=== PATIENT | male | born 1955 | race Caucasian/White ===

== ENCOUNTER 2018-09-23 15:42 | Inpatient (IN) ==
[2018-09-23 16:48] LABS: VBG Base Excess -6.8 mmol/L (-2-2); VBG Blood Gas Oxygen Content 11.6 Vol % (9.0-17.0); VBG PCO2 46 mmHG (44-48); VBG PH 7.25 (7.360-7.400); VBG PO2 53 mmHG (35-40)
--- NOTE | 2018-09-23 16:57 | XR ---
EXAM DATE: 09/23/2018 4:49 PM EST AGE/SEX: 63 years / Male INDICATIONS: Short of breath. CLINICAL DATA: This is the patient's initial encounter. Patient reports that signs and symptoms have been present for 1 day and indicates a pain score of 0/10. MEDICAL/SURGICAL HISTORY: None. None. COMPARISON: No prior exams available for comparison. FINDINGS: Patchy airspace consolidation in the mid to lower lobes, right greater than left. Cardiac silhouette is mildly enlarged with indistinct central pulmonary vascularity. Remainder of exam is unchanged. CONCLUSION: 1. Mild cardiomegaly with pulmonary edema pattern. Electronically signed by: Stephan High MD Board Certified Radiologist 09/23/2018 4:55 PM EST
[2018-09-23] MEDS ORDERED: Vancomycin Inj 1,000 MG in Sodium Chlor 0.9% Inj 250 ML IV.SIG ONE (17:01)
[2018-09-23 17:08] LABS: Baso % (Auto) 0.1 % (0.0-2.0); Hematocrit 31.6 % (39.0-51.0); Hemoglobin 10.7 gm/dL (13.0-17.0); Lymph # (Auto) 1.4 th/mm3 (1.0-4.8); Lymph % (Auto) 10.6 % (9.0-44.0); Mean Corpuscular HGB Conc 33.8 % (32.0-36.0); Mean Corpuscular Hemoglobin 33.1 pg (27.0-34.0); Mean Corpuscular Volume 97.9 fL (80.0-100.0); Mono % (Auto) 7.3 % (0.0-8.0); Neut # (Auto) 10.8 th/mm3 (1.8-7.7); Platelet Count 257 th/mm3 (150-450); Red Blood Count 3.23 mil/mm3 (4.50-5.90); Red Cell Distribution Width 14.1 % (11.6-17.2); White Blood Count 13.1 th/mm3 (4.0-11.0)
[2018-09-23 17:11] LABS: Activated Partial Thrombo Time 31.5 sec (23.4-31.7); INR 1.1 Ratio; Prothrombin Time 10.7 sec (9.8-11.6)
[2018-09-23 17:13] LABS: Alanine Aminotransferase 68 U/L (12-78); Albumin 3.7 g/dL (3.4-5.0); Anion Gap 14 meq/L (5-15); Aspartate Aminotransferase 200 U/L (15-37); Blood Urea Nitrogen 115 mg/dL (7-18); Calcium 7.9 mg/dL (8.5-10.1); Carbon Dioxide 20.6 meq/L (21.0-32.0); Chloride 98 meq/L (98-107); Glomerular Filtration Rate 12 mL/min (>89); Glucose,Random 121 mg/dL (74-106); Magnesium 2.7 mg/dL (1.5-2.5); Potassium 4.8 meq/L (3.5-5.1); Sodium 133 meq/L (136-145)
[2018-09-23 17:23] LABS: Alkaline Phosphatase 65 U/L (45-117); Thyroid Stimulating Hormone 0.318 uIU/mL (0.358-3.740); Total Protein 7.4 g/dL (6.4-8.2); Troponin I 0.58 ng/mL (0.02-0.05)
[2018-09-23 17:57] LABS: Bilirubin,Urine Negative (Negative); Clarity,Urine Clear (Clear); Color,Urine Yellow (Yellw/Straw); Glucose,Urine (UA) Negative (Negative); Hyaline Casts,Urine 10 /lpf (0-3); Leukocyte Esterase,Urine Negative (Negative); Mucus,Urine Few /lpf (Occasional); Nitrite,Urine Negative (Negative); Specific Gravity,Urine 1.012 (1.002-1.035)
--- NOTE | 2018-09-23 18:03 | CT ---
EXAM DATE: 09/23/2018 6:00 PM EST AGE/SEX: 63 years / Male INDICATIONS: Altered mental status. CLINICAL DATA: This is the patient's initial encounter. Patient reports that signs and symptoms have been present for 1 day and indicates a pain score of 0/10. MEDICAL/SURGICAL HISTORY: Hypertension. None. RADIATION DOSE: 48.41 CTDI (mGy) COMPARISON: No prior exams available for comparison. TECHNIQUE: CT of the head without contrast. Using automated exposure control and adjustment of the mA and/or kV according to patient size, radiation dose was kept as low as reasonably achievable to ob tain optimal diagnostic quality images. DICOM format image data is available electronically for revi ew and comparison. FINDINGS: Cerebrum: Mild diffuse cerebral atrophy. The ventricles are normal for degree of atrophy. No evidenc e of midline shift, mass lesion, hemorrhage or acute infarction. No extraaxial fluid collections are seen. Posterior Fossa: The cerebellum and brainstem are intact. The 4th ventricle is midline. The cerebe llopontine angle is unremarkable. Extracranial: The visualized portion of the orbits is intact. Skull: The calvaria is intact. No evidence of skull fracture. CONCLUSION: 1. No acute intracranial abnormality. . . Electronically signed by: Stephan High MD Board Certified Radiologist 09/23/2018 6:02 PM EST
[2018-09-23 18:30] LABS: Amphetamine Screen,Urine Neg (Neg); Barbiturate Screen,Urine Neg (Neg); Cannabinoid Screen,Urine Neg (Neg); Cocaine Screen,Urine Neg (Neg)
[2018-09-23 18:32] LABS: Opiate Screen,Urine Neg (Neg)
[2018-09-23] MEDS ORDERED: Acetaminophen 325 MG Tablet PO PRN (18:54)
[2018-09-23] MEDS ORDERED: Bisacodyl 10 MG Supp RECTAL PRN (18:54)
[2018-09-23] MEDS ORDERED: Dextrose 50% in Water 50 ML Vial IV.PUSH PRN (19:19)
--- NOTE | 2018-09-23 19:36 | ED ---
HPI General Chief complaint: Altered Mental Status Stated complaint: Fall Time Seen by Provider: 09/23/18 16:13 History of Present Illness HPI narrative: Patient is a 63-year-old male presents emergency department for evaluation of altered mental status gradually increasing over the past week. Patient is calmly by alexandre who states that the patient has been having increasing doses of methadone over the past week and she thinks that this is caused. She states that the patient has been taking no opiates instead been taking ibuprofen for his pain and the methadone. No history of kidney problems. He is an occasional drinker. No history of heavy Tylenol use. No fevers no cough no congestion. Was found to have a saturation in the 80s on triage and was brought back to a treatment room. His history is limited further as the patient is fairly altered. Related Data Home Medications Medication Instructions Recorded Confirmed lisinopril 09/23/18 09/23/18 Allergies Allergy/AdvReac Type Severity Reaction Status Date / Time penicillin G Allergy Mild UNKNOWN Verified 09/23/18 15:52 Review of Systems ROS: all other systems reviewed are negative [facility] Social History Social History Substance History: No History of Abuse Second Hand Smoke Exposure: No Smoking Status: Current every day smoker Tobacco Type: Cigarettes How Often Do You Have a Drink Containing Alcohol: Never Recent Travel in [facility] within the Last 8 Weeks: No Recent Out of Country Travel within the Last 8 Weeks: No Immunization History Tetanus Immunization: Unsure Exam Narrative Exam Narrative: GENERAL: Well-developed well-nourished, no obvious distress. SKIN: Focused skin assessment warm/dry. HEAD: Atraumatic. Normocephalic. EYES: Pupils equal and round. No scleral icterus. No injection or drainage. ENT: No nasal bleeding or discharge. Mucous membranes pink and moist. NECK: Trachea midline. No JVD. CARDIOVASCULAR: Regular rate and rhythm, mildly tachycardic.. No murmur appreciated. RESPIRATORY: No accessory muscle use. Breath sounds equal bilaterally. Bibasilar rales. GASTROINTESTINAL: Abdomen soft, non-tender, nondistended. Hepatic and splenic margins not palpable. MUSCULOSKELETAL: No obvious deformities. No clubbing. No cyanosis. No edema. I see no pedal edema. NEUROLOGICAL: Confused verbal response otherwise GCS of 14, follows commands in all 4 extremities. No obvious coronal nerve deficits per PSYCHIATRIC: Confused, limits evaluation further. Course Initial Documented Vital Signs Temperature 98.4 F 09/23/18 15:48 Pulse Rate 90 09/23/18 15:48 Respiratory Rate 20 09/23/18 15:48 Blood Pressure 134/77 09/23/18 15:48 Pulse Oximetry 88 L 09/23/18 15:48 Last Documented Vital Signs Temperature 98.4 F 09/23/18 15:48 Pulse Rate 80 09/23/18 17:35 Respiratory Rate 31 H 09/23/18 17:35 Blood Pressure 120/61 09/23/18 17:35 Pulse Oximetry 98 09/23/18 19:23 Critical Care Time Critical Care Time: Yes Total Critical Care Time: 35 Attestation: Aggregate critical care time was 35 minutes. Time to perform other separately billable procedures was not included in the critical care time. My time did not include minutes spent treating any other patients simultaneously or on activities that did not directly contribute to the patient's treatment. The services I provided to this patient were to treat and/or prevent clinically significant deterioration that could result in: , disability, organ failure I provided critical care services requiring my management, as noted below: Chart data review, documentation time, medication orders and management, vital sign assessments/reviewing monitor data, ordering and reviewing lab tests, ordering and interpreting/reviewing x-rays and diagnostic studies, care of the patient and discussion of the patient with the admitting physicians. Medical Decision Making MDM Narrative Medical decision making narrative: Patient room in the emergency department, certainly is confused, wide differential diagnosis. Vital signs within normal limits. Ammonia level negative, lactic acid normal. Patient does have mild acidosis appears to be combined metabolic and respiratory. He is significantly uremic with a BUN of 111 which I think would explain his altered mental status. Creatinine is now 5 and there is no previous for comparison. EKG nonischemic troponin is 0.52. Potassium is 4.8 per patient's chest x-ray shows significant pulmonary edema, Baca catheter was placed with scant urine in the bladder, Lasix 80 mg was given IV the patient began to diurese fairly clear urine. Appears to be that the patient is having uremic encephalopathy with acute kidney injury hypoxic respiratory failure and pulmonary edema. Given the altered mental status and the history of opiate use the patient was also covered for aspiration pneumonia. Blood cultures drawn and sent as well. Patient was discussed with Dr. Diaz who states is no indication for emergent dialysis at this time. Discussed with Dr. Sonja Tai who will admit to the ICU, we discussed the addition of BiPAP Medical Screen Exam Complete: Yes Emergency Medical Condition: Yes Lab Data Result diagrams: 09/23/18 16:40 09/23/18 16:40 Lab Results 09/23/18 09/23/18 09/23/18 Range/Units 16:40 16:40 16:40 WBC 13.1 H (4.0-11.0) th/mm3 RBC 3.23 L (4.50-5.90) mil/mm3 Hgb 10.7 L (13.0-17.0) gm/dL Hct 31.6 L (39.0-51.0) % MCV 97.9 (80.0-100.0) fL MCH 33.1 (27.0-34.0) pg MCHC 33.8 (32.0-36.0) % RDW 14.1 (11.6-17.2) % Plt Count 257 (150-450) th/mm3 MPV 8.0 (7.0-11.0) fL Neut % (Auto) 82.0 H (16.0-70.0) % Lymph % (Auto) 10.6 (9.0-44.0) % [place] % (Auto) 7.3 (0.0-8.0) % Eos % (Auto) 0.0 (0.0-4.0) % Baso % (Auto) 0.1 (0.0-2.0) % Neut # (Auto) 10.8 H (1.8-7.7) th/mm3 Lymph # (Auto) 1.4 (1.0-4.8) th/mm3 [place] # (Auto) 1.0 H (0.0-0.9) th/mm3 Eos # (Auto) 0.0 (0.0-0.4) th/mm3 Baso # (Auto) 0.0 (0.0-0.2) th/mm3 WBC Differential . Differential Comment Auto diff final PT 10.7 (9.8-11.6) sec INR 1.1 Ratio APTT 31.5 (23.4-31.7) sec Puncture Site Patient Temperature VBG pH (7.360-7.400) VBG pCO2 (44-48) mmHG VBG pO2 (35-40) mmHG VBG HCO3 (22-26) mmol/L VBG O2 Saturation (70-76) % VBG O2 Content (9.0-17.0) Vol % VBG Base Excess (-2-2) mmol/L VBG Carboxyhemoglobin (0-4) % VBG Methemoglobin (0-2) % Hemoglobin (12.0-16.0) G/DL O2 Delivery Device Inspired O2 % Critical Value Sodium 133 L (136-145) meq/L Potassium 4.8 (3.5-5.1) meq/L Chloride 98 (98-107) meq/L Carbon Dioxide 20.6 L (21.0-32.0) meq/L Anion Gap 14 (5-15) meq/L BUN 115 H (7-18) mg/dL Creatinine 4.92 H (0.60-1.30) mg/dL Estimated GFR 12 L (>89) mL/min POC Glucose (68-110) mg/dl Random Glucose 121 H (74-106) mg/dL Lactic Acid (0.4-2.0) mmol/L Calcium 7.9 L (8.5-10.1) mg/dL Magnesium 2.7 H (1.5-2.5) mg/dL Total Bilirubin 0.3 (0.2-1.0) mg/dL AST 200 H (15-37) U/L ALT 68 (12-78) U/L Alkaline Phosphatase 65 (45-117) U/L Ammonia (11-32) mcmol/L Troponin I 0.58 H (0.02-0.05) ng/mL B-Natriuretic Peptide (0-100) pg/mL Total Protein 7.4 (6.4-8.2) g/dL Albumin 3.7 (3.4-5.0) g/dL TSH 0.318 L (0.358-3.740) uIU/mL Urine Color (Yellw/Straw) Urine Clarity (Clear) Urine pH (5.0-8.5) Ur Specific [place] (1.002-1.035) Urine Protein (Neg-Trace) mg/dL Urine Glucose (UA) (Negative) mg/dL Urine Ketones (Negative) mg/dL Urine Occult Blood (Negative) Urine Nitrate (Negative) Urine Bilirubin (Negative) Urine Urobilinogen (Less than 2) mg/dL Ur Leukocyte Esterase (Negative) Urine RBC (0-3) /hpf Urine WBC (0-5) /hpf Hyaline Casts (0-3) /lpf Urine Mucus (Occasional) /lpf Micro UA Comment Ur Microscopic Review Urine Culture Comments Salicylates (2.8-20.0) mg/dL Urine Opiates Screen (Neg) Acetaminophen (10.0-30.0) mcg/mL Ur Barbiturates Screen (Neg) Ur Amphetamines Screen (Neg) U Benzodiazepines Scrn (Neg) Urine Cocaine Screen (Neg) U Cannabinoids Screen (Neg) Serum Alcohol (0-5) mg/dL 09/23/18 09/23/18 09/23/18 Range/Units 16:40 16:40 16:40 WBC (4.0-11.0) th/mm3 RBC (4.50-5.90) mil/mm3 Hgb (13.0-17.0) gm/dL Hct (39.0-51.0) % MCV (80.0-100.0) fL MCH (27.0-34.0) pg MCHC (32.0-36.0) % RDW (11.6-17.2) % Plt Count (150-450) th/mm3 MPV (7.0-11.0) fL Neut % (Auto) (16.0-70.0) % Lymph % (Auto) (9.0-44.0) % [place] % (Auto) (0.0-8.0) % Eos % (Auto) (0.0-4.0) % Baso % (Auto) (0.0-2.0) % Neut # (Auto) (1.8-7.7) th/mm3 Lymph # (Auto) (1.0-4.8) th/mm3 [place] # (Auto) (0.0-0.9) th/mm3 Eos # (Auto) (0.0-0.4) th/mm3 Baso # (Auto) (0.0-0.2) th/mm3 WBC Differential Differential Comment PT (9.8-11.6) sec INR Ratio APTT (23.4-31.7) sec Puncture Site Patient Temperature VBG pH (7.360-7.400) VBG pCO2 (44-48) mmHG VBG pO2 (35-40) mmHG VBG HCO3 (22-26) mmol/L VBG O2 Saturation (70-76) % VBG O2 Content (9.0-17.0) Vol % VBG Base Excess (-2-2) mmol/L VBG Carboxyhemoglobin (0-4) % VBG Methemoglobin (0-2) % Hemoglobin (12.0-16.0) G/DL O2 Delivery Device Inspired O2 % Critical Value Sodium (136-145) meq/L Potassium (3.5-5.1) meq/L Chloride (98-107) meq/L Carbon Dioxide (21.0-32.0) meq/L Anion Gap (5-15) meq/L BUN (7-18) mg/dL Creatinine (0.60-1.30) mg/dL Estimated GFR (>89) mL/min POC Glucose (68-110) mg/dl Random Glucose (74-106) mg/dL Lactic Acid (0.4-2.0) mmol/L Calcium (8.5-10.1) mg/dL Magnesium (1.5-2.5) mg/dL Total Bilirubin (0.2-1.0) mg/dL AST (15-37) U/L ALT (12-78) U/L Alkaline Phosphatase (45-117) U/L Ammonia 24 (11-32) mcmol/L Troponin I (0.02-0.05) ng/mL B-Natriuretic Peptide (0-100) pg/mL Total Protein (6.4-8.2) g/dL Albumin (3.4-5.0) g/dL TSH (0.358-3.740) uIU/mL Urine Color (Yellw/Straw) Urine Clarity (Clear) Urine pH (5.0-8.5) Ur Specific [place] (1.002-1.035) Urine Protein (Neg-Trace) mg/dL Urine Glucose (UA) (Negative) mg/dL Urine Ketones (Negative) mg/dL Urine Occult Blood (Negative) Urine Nitrate (Negative) Urine Bilirubin (Negative) Urine Urobilinogen (Less than 2) mg/dL Ur Leukocyte Esterase (Negative) Urine RBC (0-3) /hpf Urine WBC (0-5) /hpf Hyaline Casts (0-3) /lpf Urine Mucus (Occasional) /lpf Micro UA Comment Ur Microscopic Review Urine Culture Comments Salicylates 2.4 L (2.8-20.0) mg/dL Urine Opiates Screen (Neg) Acetaminophen Less than 2.0 L (10.0-30.0) mcg/mL Ur Barbiturates Screen (Neg) Ur Amphetamines Screen (Neg) U Benzodiazepines Scrn (Neg) Urine Cocaine Screen (Neg) U Cannabinoids Screen (Neg) Serum Alcohol Less than 3 (0-5) mg/dL 09/23/18 09/23/18 09/23/18 Range/Units 16:42 16:52 17:17 WBC (4.0-11.0) th/mm3 RBC (4.50-5.90) mil/mm3 Hgb (13.0-17.0) gm/dL Hct (39.0-51.0) % MCV (80.0-100.0) fL MCH (27.0-34.0) pg MCHC (32.0-36.0) % RDW (11.6-17.2) % Plt Count (150-450) th/mm3 MPV (7.0-11.0) fL Neut % (Auto) (16.0-70.0) % Lymph % (Auto) (9.0-44.0) % [place] % (Auto) (0.0-8.0) % Eos % (Auto) (0.0-4.0) % Baso % (Auto) (0.0-2.0) % Neut # (Auto) (1.8-7.7) th/mm3 Lymph # (Auto) (1.0-4.8) th/mm3 [place] # (Auto) (0.0-0.9) th/mm3 Eos # (Auto) (0.0-0.4) th/mm3 Baso # (Auto) (0.0-0.2) th/mm3 WBC Differential Differential Comment PT (9.8-11.6) sec INR Ratio APTT (23.4-31.7) sec Puncture Site Vein Patient Temperature 98.6 VBG pH 7.25 L* (7.360-7.400) VBG pCO2 46 (44-48) mmHG VBG pO2 53 H (35-40) mmHG VBG HCO3 19 L (22-26) mmol/L VBG O2 Saturation 78 H (70-76) % VBG O2 Content 11.6 (9.0-17.0) Vol % VBG Base Excess -6.8 L (-2-2) mmol/L VBG Carboxyhemoglobin 0.9 (0-4) % VBG Methemoglobin 0.5 (0-2) % Hemoglobin 10.6 L (12.0-16.0) G/DL O2 Delivery Device Venti mask Inspired O2 50 % Critical Value Yes Sodium (136-145) meq/L Potassium (3.5-5.1) meq/L Chloride (98-107) meq/L Carbon Dioxide (21.0-32.0) meq/L Anion Gap (5-15) meq/L BUN (7-18) mg/dL Creatinine (0.60-1.30) mg/dL Estimated GFR (>89) mL/min POC Glucose 125 H (68-110) mg/dl Random Glucose (74-106) mg/dL Lactic Acid 0.6 (0.4-2.0) mmol/L Calcium (8.5-10.1) mg/dL Magnesium (1.5-2.5) mg/dL Total Bilirubin (0.2-1.0) mg/dL AST (15-37) U/L ALT (12-78) U/L Alkaline Phosphatase (45-117) U/L Ammonia (11-32) mcmol/L Troponin I (0.02-0.05) ng/mL B-Natriuretic Peptide (0-100) pg/mL Total Protein (6.4-8.2) g/dL Albumin (3.4-5.0) g/dL TSH (0.358-3.740) uIU/mL Urine Color (Yellw/Straw) Urine Clarity (Clear) Urine pH (5.0-8.5) Ur Specific [place] (1.002-1.035) Urine Protein (Neg-Trace) mg/dL Urine Glucose (UA) (Negative) mg/dL Urine Ketones (Negative) mg/dL Urine Occult Blood (Negative) Urine Nitrate (Negative) Urine Bilirubin (Negative) Urine Urobilinogen (Less than 2) mg/dL Ur Leukocyte Esterase (Negative) Urine RBC (0-3) /hpf Urine WBC (0-5) /hpf Hyaline Casts (0-3) /lpf Urine Mucus (Occasional) /lpf Micro UA Comment Ur Microscopic Review Urine Culture Comments Salicylates (2.8-20.0) mg/dL Urine Opiates Screen (Neg) Acetaminophen (10.0-30.0) mcg/mL Ur Barbiturates Screen (Neg) Ur Amphetamines Screen (Neg) U Benzodiazepines Scrn (Neg) Urine Cocaine Screen (Neg) U Cannabinoids Screen (Neg) Serum Alcohol (0-5) mg/dL 09/23/18 09/23/18 09/23/18 Range/Units 17:17 17:40 17:40 WBC (4.0-11.0) th/mm3 RBC (4.50-5.90) mil/mm3 Hgb (13.0-17.0) gm/dL Hct (39.0-51.0) % MCV (80.0-100.0) fL MCH (27.0-34.0) pg MCHC (32.0-36.0) % RDW (11.6-17.2) % Plt Count (150-450) th/mm3 MPV (7.0-11.0) fL Neut % (Auto) (16.0-70.0) % Lymph % (Auto) (9.0-44.0) % [place] % (Auto) (0.0-8.0) % Eos % (Auto) (0.0-4.0) % Baso % (Auto) (0.0-2.0) % Neut # (Auto) (1.8-7.7) th/mm3 Lymph # (Auto) (1.0-4.8) th/mm3 [place] # (Auto) (0.0-0.9) th/mm3 Eos # (Auto) (0.0-0.4) th/mm3 Baso # (Auto) (0.0-0.2) th/mm3 WBC Differential Differential Comment PT (9.8-11.6) sec INR Ratio APTT (23.4-31.7) sec Puncture Site Patient Temperature VBG pH (7.360-7.400) VBG pCO2 (44-48) mmHG VBG pO2 (35-40) mmHG VBG HCO3 (22-26) mmol/L VBG O2 Saturation (70-76) % VBG O2 Content (9.0-17.0) Vol % VBG Base Excess (-2-2) mmol/L VBG Carboxyhemoglobin (0-4) % VBG Methemoglobin (0-2) % Hemoglobin (12.0-16.0) G/DL O2 Delivery Device Inspired O2 % Critical Value Sodium (136-145) meq/L Potassium (3.5-5.1) meq/L Chloride (98-107) meq/L Carbon Dioxide (21.0-32.0) meq/L Anion Gap (5-15) meq/L BUN (7-18) mg/dL Creatinine (0.60-1.30) mg/dL Estimated GFR (>89) mL/min POC Glucose (68-110) mg/dl Random Glucose (74-106) mg/dL Lactic Acid (0.4-2.0) mmol/L Calcium (8.5-10.1) mg/dL Magnesium (1.5-2.5) mg/dL Total Bilirubin (0.2-1.0) mg/dL AST (15-37) U/L ALT (12-78) U/L Alkaline Phosphatase (45-117) U/L Ammonia (11-32) mcmol/L Troponin I (0.02-0.05) ng/mL B-Natriuretic Peptide 239 H (0-100) pg/mL Total Protein (6.4-8.2) g/dL Albumin (3.4-5.0) g/dL TSH (0.358-3.740) uIU/mL Urine Color Yellow (Yellw/Straw) Urine Clarity Clear (Clear) Urine pH 5.0 (5.0-8.5) Ur Specific [place] 1.012 (1.002-1.035) Urine Protein Negative (Neg-Trace) mg/dL Urine Glucose (UA) Negative (Negative) mg/dL Urine Ketones Negative (Negative) mg/dL Urine Occult Blood Moderate H (Negative) Urine Nitrate Negative (Negative) Urine Bilirubin Negative (Negative) Urine Urobilinogen Less than 2 (Less than 2) mg/dL Ur Leukocyte Esterase Negative (Negative) Urine RBC Less than 1 (0-3) /hpf Urine WBC 7 H (0-5) /hpf Hyaline Casts 10 (0-3) /lpf Urine Mucus Few H (Occasional) /lpf Micro UA Comment Cath-culture not ind Ur Microscopic Review Not Reportable Urine Culture Comments Cath-cult not ind Salicylates (2.8-20.0) mg/dL Urine Opiates Screen Neg (Neg) Acetaminophen (10.0-30.0) mcg/mL Ur Barbiturates Screen Neg (Neg) Ur Amphetamines Screen Neg (Neg) U Benzodiazepines Scrn Neg (Neg) Urine Cocaine Screen Neg (Neg) U Cannabinoids Screen Neg (Neg) Serum Alcohol (0-5) mg/dL Imaging Data Radiologist's impression: Chest X-Ray 09/23/18 16:19 CONCLUSION: 1. Mild cardiomegaly with pulmonary edema pattern. Head CT 09/23/18 16:19 CONCLUSION: 1. No acute intracranial abnormality. . . Discharge Plan Discharge Disposition Patient Disposition: ED Admit(ED Internal Use Only) Discharge Condition Condition: Fair Discharge Order Discharge Orders: ED Use Only Admit Order (Routine); Ordered 09/23/18 Ordered By: Petey Hope Discharge Details Diagnosis: Altered mental status, Delirium due to general medical condition, Uremic encephalopathy, Acute kidney failure, Pulmonary edema, Acute respiratory failure with hypoxia Physicians Team ED Provider: Petey Hope Primary Care Provider: Primary Care Physici,No Attending Provider: Florence Villarreal Other Providers: [employer] Status ED Status: Admitted Patient
--- NOTE | 2018-09-23 19:39 | P.HPCC ---
History of Present Illness Service: Critical care Primary Care Physician: No Primary Care Physician Chief Complaint: Altered mental status History of Present Illness: 63yM presenting with altered mental status. As per the patient's spouse, the patient has been switching from hydrocodone to methadone over the past several weeks; she says "they just keep going up on the dose every time he goes for an appointment" but is unsure of what dose the patient is currently taking. She says that he's been increasingly confused in the mornings after he takes his medications but typically becomes more alert in the afternoon. He's been taking ibuprofen "by the handful, like candy" for the past 1-2 weeks to help with his chronic back pain, and his spouse brought him to the ED today when she noticed that he was increasingly more confused than usual. The patient was seen in the ED and found to have acute kidney injury, pulmonary edema, and presumed uremic encephalopathy. The patient is a very poor historian and is unable to provide further details of HPI or ROS. He and his spouse do not know what home meds he is on or the doses. - Diagnosis (1) Acute metabolic encephalopathy (2) Acute kidney injury (3) Pulmonary edema (4) Chronically on opiate therapy (5) Metabolic acidosis (6) Elevated troponin Inpatient Certification: I certify that the inpatient services were ordered in accordance with Medicare regulations governing the order. This includes certification that hospital inpatient services are reasonable and necessary and in the case of services not specified as inpatient-only under 42 CFR 419.22(n), that they are appropriately provided as inpatient services in accordance to with the 2-midnight benchmark under 43 CFR 412.3(e) Estimated Total Length of Stay (Days): 5 Plans for Post Hospital Care: Not yet determined Review of Systems unobtainable due to mental status PMFSH - History History Provided By: Patient, Significant Other - Medical History Medical History: Medical History (Last Reviewed 09/23/18 @ 19:13 by Florence Villarreal DO) HTN (hypertension) Hyperlipidemia - Social History I have reviewed the patient's Social History: Yes - Tobacco History Second Hand Smoke Exposure: No Tobacco Use In Past 30 Days: Yes Smoking Status: Current every day smoker Tobacco Type: Cigarettes - Alcohol History How Often Do You Have a Drink Containing Alcohol: Never - Substance Use History Substance History: No History of Abuse - Travel History Recent Travel in the [facility] Within the Last 8 Weeks: No Recent Travel Out of the Country Within the Last 8 Weeks: No - Immunization History Tetanus Immunization: Unsure Medications and Allergies Active Medications: Active Medications Acetaminophen (Tylenol) 650 mg PO Q6H PRN PRN Reason: PAIN 1-10 AND/OR FEVER >101F Al Hydroxide/Mg Hydroxide (Milk Of Magnesia Liq) 30 ml PO Q12H PRN PRN Reason: Mild Constipation Albuterol (Duoneb Neb (Prn)) 1 ampul NEB Q2HR NEB PRN PRN Reason: WHEEZING Albuterol (Duoneb Neb (Prn)) 1 ampul NEB Q4HR NEB ADITHYA Bisacodyl (Dulcolax Supp) 10 mg RECTAL DAILY PRN PRN Reason: SEVERE CONSITIPATION Chlorhexidine Gluconate (Chlorhexidine 2% Cloth) 3 pack TOPICAL DAILY@0400 ADITHYA Stop: 09/29/18 03:59 Chlorhexidine Gluconate (Chlorhexidine 2% Cloth) 3 pack TOPICAL DAILY@0400 PRN PRN Reason: Extra cloth needed Stop: 09/29/18 03:59 Famotidine (Pepcid) 20 mg PO BID ADITHYA Famotidine (Pepcid Pf Inj) 20 mg IV.PUSH Q12HR ADITHYA Furosemide (Lasix Inj) 40 mg IV.PUSH ONCE ONE Stop: 09/24/18 00:01 Heparin Sodium (Porcine) (Heparin Inj) 5,000 units SQ Q8H [facility] Sodium Bicarbonate 50 meq/ (Dextrose) 1,000 mls @ 100 mls/hr IV.CONT .Q10H ADITHYA Lactulose (Lactulose Liq) 30 ml PO DAILY PRN PRN Reason: SEVERE CONSITIPATION Ondansetron HCl (Zofran Inj) 4 mg IV.PUSH Q6H PRN PRN Reason: NAUSEA OR VOMITING Senna/Docusate Sodium (Ofelia-Colace) 1 tab PO BID [facility] Sennosides (Senokot) 17.2 mg PO Q12H PRN PRN Reason: Moderate Constipation Sodium Chloride (Ns Flush) 2 ml IV.FLUSH PRN PRN PRN Reason: FLUSH AFTER USING IV ACCESS Sodium Chloride (Ns Flush) 2 ml IV.FLUSH BID ADITHYA Sodium Chloride (Ns Flush) 2 ml IV.FLUSH PRN PRN PRN Reason: FLUSH AFTER USING IV ACCESS Allergies Allergy/AdvReac Type Severity Reaction Status Date / Time penicillin G Allergy Mild UNKNOWN Verified 09/23/18 15:52 Home Medications Medication Instructions Recorded Confirmed Type lisinopril 09/23/18 09/23/18 History Results - Labs CBC & Chem 7: 09/23/18 16:40 09/23/18 16:40 Labs: Short CBC 09/23/18 Range/Units 16:40 WBC 13.1 H (4.0-11.0) th/mm3 Hgb 10.7 L (13.0-17.0) gm/dL Hct 31.6 L (39.0-51.0) % Plt Count 257 (150-450) th/mm3 BMP 09/23/18 16:40 Sodium 133 L Potassium 4.8 Chloride 98 Carbon Dioxide 20.6 L BUN 115 H Creatinine 4.92 H Calcium 7.9 L Cardiac Enzymes 09/23/18 Range/Units 16:40 Troponin I 0.58 H (0.02-0.05) ng/mL Liver Function 09/23/18 Range/Units 16:40 Total Bilirubin 0.3 (0.2-1.0) mg/dL AST 200 H (15-37) U/L ALT 68 (12-78) U/L Alkaline Phosphatase 65 (45-117) U/L Albumin 3.7 (3.4-5.0) g/dL Urine 09/23/18 Range/Units 17:40 Urine Color Yellow (Yellw/Straw) Urine Clarity Clear (Clear) Urine pH 5.0 (5.0-8.5) Ur Specific [place] 1.012 (1.002-1.035) Urine Protein Negative (Neg-Trace) mg/dL Urine Glucose (UA) Negative (Negative) mg/dL - Imaging Impressions Chest X-Ray 09/23/18 16:19 CONCLUSION: 1. Mild cardiomegaly with pulmonary edema pattern. Head CT 09/23/18 16:19 CONCLUSION: 1. No acute intracranial abnormality. . . - ECG Attestation: I personally reviewed and interpreted this ECG as follows: Interpretation: Rate: 88 BPM Rhythm: Sinus [place]: Left Intervals: No blocks, normal intervals, QTc 410 ms Q waves: III, aVF T waves: Upright, no inversions ST segments: No elevations or depressions Impression: Non-specific EKG, no significant changes as compared to EKG from 04/01. Exam Vital signs: Vital Signs 09/23/18 15:48 09/23/18 15:52 09/23/18 16:13 Temperature 98.4 F Pulse Rate 90 90 Respiratory Rate 20 24 Blood Pressure 134/77 145/68 H Pulse Oximetry 88 L 91 L 90 L 09/23/18 17:35 Temperature Pulse Rate 80 Respiratory Rate 31 H Blood Pressure 120/61 Pulse Oximetry 82 L Intake & Output 09/23/18 09/23/18 09/24/18 06:59 18:59 06:59 Intake Total 450 / 450 Balance 450 / 450 Weight 106.594 kg Intake: IV 450 / 450 Vancomycin Inj 1,000 MG In NS 250 / 250 Inj 250 ML @ 250 mls/hr IV.SIG ONCE ONE Rx#:[id number] Rocephin Inj 1,000 MG In NS Inj 100 / 100 100 ML @ 200 mls/hr IV.SIG ONCE ONE Rx#:[id number] Flagyl 500 MG Inj 100 ML @ 100 100 / 100 mls/hr IV.SIG ONCE ONE Rx#: [id number] Narrative: GEN: Well-nourished, appears confused, maintaining airway reflexes HEENT: NCAT, mucosa dry NECK: Trachea midline, no JVD CARDIO: Regular rate and rhythm, no murmurs PULM: Diminished breath sounds at bases with faint mid-field crackles bilaterally, O2 sats low to mid 90s on simple mask, mildly tachypneic but speaks in complete sentences ABD/GI: Soft, non-distended, non-tender in all quadrants MSK: Trace peripheral edema SKIN: No rashes or lesions NEURO: Alert and oriented x 3, appears confused, very poor historian, requires frequent redirection, moves all extremities PSYCH: No agitation Caprini VTE Risk Assessment Caprini VTE Risk Assessment: Moderate/High Risk (score >= 2) Caprini Risk Assessment Model: Point Value = 1 Point Value = 2 Point Value = 3 Point Value = 5 Age 41-60 Minor surgery BMI > 25 kg/m2 Swollen legs Varicose veins or History of unexplained or recurrent spontaneous Oral contraceptives or hormone replacement Sepsis (< 1 month) Serious lung disease, including pneumonia (< 1 month) Abnormal pulmonary function Acute myocardial infarction Congestive heart failure (< 1 month) History of inflammatory bowel disease Medical patient at bed rest Age 61-74 Arthroscopic surgery Major open surgery (> 45 min) Laparoscopic surgery (> 45 min) Malignancy Confined to bed (> 72 hours) Immobilizing plaster cast Central venous access Age >= 75 History of VTE Family history of VTE Factor V Leiden Prothrombin [id number] Lupus anticoagulant Anticardiolipin antibodies Elevated serum homocysteine Heparin-induced thrombocytopenia Other congenital or acquired thrombophilia Stroke (< 1 month) Elective arthroplasty Hip, pelvis, or leg fracture Acute spinal cord injury (< 1 month) Prophylaxis Regimen: Total Risk Factor Score Risk Level Prophylaxis Regimen 0-1 Low Early ambulation 2 Moderate Order ONE of the following: *Sequential Compression Device (SCD) *Heparin 5000 units SQ BID 3-4 Higher Order ONE of the following medications: *Heparin 5000 units SQ TID *Enoxaparin/Lovenox 40 mg SQ daily (WT < 150 kg, CrCl > 30 mL/min) *Enoxaparin/Lovenox 30 mg SQ daily (WT < 150 kg, CrCl > 10-29 mL/min) *Enoxaparin/Lovenox 30 mg SQ BID (WT < 150 kg, CrCl > 30 mL/min) AND/OR *Sequential Compression Device (SCD) 5 or more Highest Order ONE of the following medications: *Heparin 5000 units SQ TID (Preferred with Epidurals) *Enoxaparin/Lovenox 40 mg SQ daily (WT < 150 kg, CrCl > 30 mL/min) *Enoxaparin/Lovenox 30 mg SQ daily (WT < 150 kg, CrCl > 10-29 mL/min) *Enoxaparin/Lovenox 30 mg SQ BID (WT < 150 kg, CrCl > 30 mL/min) AND *Sequential Compression Device (SCD) Assessment and Plan - Problem List (1) Acute metabolic encephalopathy Code(s): G93.41 - Metabolic encephalopathy Status: Acute (2) Acute kidney injury Code(s): N17.9 - Acute kidney failure, unspecified Status: Acute (3) Pulmonary edema Code(s): J81.1 - Chronic pulmonary edema Status: Acute (4) Chronically on opiate therapy Code(s): Z79.891 - long term care pharmacist (current) use of opiate analgesic Status: Acute (5) Metabolic acidosis Code(s): E87.2 - Acidosis Status: Acute (6) Elevated troponin Code(s): R74.8 - Abnormal levels of other serum enzymes Status: Acute - Assessment and Plan Plan: 63yM presenting with acute metabolic encephalopathy, acute kidney injury, pulmonary edema, elevated troponin, and metabolic acidosis NEURO: Acute metabolic encephalopathy, likely due to uremia vs medication effect Chronic opiate dependence -Patient is unsure of what dose of methadone he's on at home, will hold for now as he is encephalopathic but will need to clarify dose in AM to prevent acute withdrawal -Frequent neuro checks -CTH showed no acute pathology -No reported history of alcohol or illicit drug abuse/ dependence CARDIO: History of hypertension History of dyslipidemia Elevated troponin -Patient does not know what meds he takes at home for either of these conditions , will need home meds clarified in AM -Cardiac monitoring -Trend trops -Check 2D echo in the setting of new pulmonary edema and elevated trop, more likely due to renal failure rather than ACS -Patient reports no chest pain at present, EKG shows no concerning ST or T wave changes -Daily ASA PULM: Acute pulmonary edema Possible aspiration pneumonitis Acute respiratory failure requiring non-invasive ventilation via BiPAP -Will place on bipap overnight to aid with pulmonary edema -Repeat CXR and ABG in AM -Diuresis as outlined below -Patient received a dose of ceftriaxone, metronidazole, and vancomycin in ED over concern for possible aspiration; will observe off antibiotics for now as patient is afebrile and has only mild leukocytosis -ABG on FiO2 of 0.5 is 7.24/ 45.9/ 53.4/ 19.2/ -6.8, indicates metabolic acidosis rather than respiratory cause (see below) F/E/N, RENAL: Acute kidney injury Acute metabolic acidosis -NPO while on bipap, ok to have ice chips -Bicarb gtt @ 100 cc/hr as patient likely has a component of RTA due to subacute / chronic NSAID overdose -Creat currently 4.92, check BMP in AM -Urine output >900 cc after receiving 80 mg lasix in ED, strict Is/Os, requires continuation of Baca catheter -Repeat dose of lasix at midnight (6 hrs after initial dose) -Check urine eosinophils -Check CPK to r/o rhabdomyolysis -Urine pH 5.0 -Recheck ABG in AM -Consider nephrology consult if kidney function worsens ENDO: Questionable history of diabetes mellitus -Patient is unsure of whether he has been diagnosed with this in the past, does not currently take any medications for DM -Sliding scale insulin as needed PROPHY: -SCDs, SQH -PPI OVERALL: This patient is critically ill and requires ICU level of care. He is at risk for decompensation. Counseling/ Coordination of Care: This patient is critically ill with impairment of one or more vital organ systems with a high probability of imminent or life-threatening deterioration. High-complexity medical decision making was required to support vital organ function and/ or prevent deterioration in the patient's condition. Total critical care time spent is 62 minutes giving full attention to this patient. This includes examining the patient, gathering history from someone other than the patient (i.e. chart review), discussing the patient's care with other providers, managing the patient's blood pressure and ventilator settings, ordering and interpreting radiologic studies, ordering and interpreting laboratory values, managing the patient's sedation requirements, re-evaluation at frequent intervals, and documentation. Amount of time is separate from teaching, counseling the patient and/or family, and exclusive of procedures. Code Status: Full
[2018-09-23] MEDS: Sodium Bicarbonate 8.4% Inj 50 MEQ in Dextrose 5% in Water Inj 950 ML IV.CONT SCH ×2 (19:57)
[2018-09-23 20:27] LABS: ABG PCO2 42 mmHg (38-42); ABG PO2 92 mmHg (61-120)
[2018-09-23 20:45] LABS: Creatine Kinase MB 146.8 ng/mL (0.5-3.6)
[2018-09-23] MEDS: Famotidine PF Inj 20 MG/2 ML Vial IV.PUSH SCH (21:54)
[2018-09-23] MEDS: Heparin - SQ 10,000 UNITS/ML Vial SQ SCH (21:55)
[2018-09-23] MEDS: Famotidine 20 MG Tablet PO SCH (21:56)
[2018-09-23] MEDS: Senna/Docusate Sodium 8.6/50 MG Tablet PO SCH (21:56)
[2018-09-24] MEDS: Insulin NovoLIN Regular Correctional Sugar Inj SQ SCH ×4 (00:18→21:56)
[2018-09-24] MEDS ORDERED: Chlorhexidine Gluconate 2% 1 Pack (2 Cloths) TOPICAL PRN (04:00)
[2018-09-24 04:38] LABS: Baso % (Auto) 0.1 % (0.0-2.0); Eos % (Auto) 0.2 % (0.0-4.0); Hematocrit 33.3 % (39.0-51.0); Hemoglobin 11.2 gm/dL (13.0-17.0); Lymph # (Auto) 0.8 th/mm3 (1.0-4.8); Lymph % (Auto) 8.6 % (9.0-44.0); Mean Corpuscular HGB Conc 33.7 % (32.0-36.0); Mean Corpuscular Hemoglobin 33.4 pg (27.0-34.0); Mean Corpuscular Volume 98.9 fL (80.0-100.0); Mean Platelet Volume 8.3 fL (7.0-11.0); Mono # (Auto) 0.7 th/mm3 (0.0-0.9); Mono % (Auto) 7.1 % (0.0-8.0); Platelet Count 253 th/mm3 (150-450); Red Blood Count 3.37 mil/mm3 (4.50-5.90); White Blood Count 9.5 th/mm3 (4.0-11.0)
[2018-09-24 04:46] LABS: ABG Base Excess -3.2 mmol/L (-2-2); ABG PCO2 46 mmHg (38-42); ABG PO2 100 mmHG (61-120)
[2018-09-24] MEDS: Heparin - SQ 10,000 UNITS/ML Vial SQ SCH ×3 (04:57→21:52)
[2018-09-24] MEDS: Chlorhexidine Gluconate 2% 1 Pack (2 Cloths) TOPICAL SCH (04:57)
[2018-09-24 05:16] LABS: Alanine Aminotransferase 70 U/L (12-78); Albumin 3.4 g/dL (3.4-5.0); Alkaline Phosphatase 54 U/L (45-117); Anion Gap 15 meq/L (5-15); Aspartate Aminotransferase 159 U/L (15-37); Blood Urea Nitrogen 109 mg/dL (7-18); Calcium 8.2 mg/dL (8.5-10.1); Carbon Dioxide 23.2 meq/L (21.0-32.0); Chloride 98 meq/L (98-107); Creatine Kinase 4758 U/L (39-308); Glomerular Filtration Rate 18 mL/min (>89); Glucose,Random 123 mg/dL (74-106); Magnesium 2.6 mg/dL (1.5-2.5); Phosphorus 6.2 mg/dL (2.5-4.9); Potassium 3.6 meq/L (3.5-5.1); Sodium 136 meq/L (136-145); Total Protein 7.2 g/dL (6.4-8.2)
[2018-09-24 05:18] LABS: Troponin I 0.66 ng/mL (0.02-0.05)
[2018-09-24 05:32] LABS: CKMB Percent 1.5 % (0.0-4.0); Creatine Kinase MB 72.9 ng/mL (0.5-3.6)
--- NOTE | 2018-09-24 05:40 | XR ---
EXAM DATE: 09/24/2018 5:31 AM EST AGE/SEX: 63 years / Male INDICATIONS: Shortness of breath. CLINICAL DATA: This is the patient's subsequent encounter. Patient reports that signs and symptoms h ave been present for 2 days and indicates a pain score of 0/10. MEDICAL/SURGICAL HISTORY: Hypertension. None. COMPARISON: [facility] – [place], CHEST 1V SINGLE AP, 09/23/2018. . FINDINGS: A single AP view of the chest demonstrates bilateral patchy airspace disease. Cardiomegaly. The card iomediastinal contours are unremarkable. Osseous structures are intact. CONCLUSION: Cardiomegaly and bilateral patchy airspace disease Electronically signed by: Rodolfo Qiu MD Board Certified Radiologist 09/24/2018 5:38 AM EST
[2018-09-24] MEDS: Sodium Bicarbonate 8.4% Inj 50 MEQ in Dextrose 5% in Water Inj 950 ML IV.CONT SCH ×2 (06:12)
[2018-09-24] MEDS: Famotidine PF Inj 20 MG/2 ML Vial IV.PUSH SCH ×2 (09:54→21:55)
[2018-09-24] MEDS: Famotidine 20 MG Tablet PO SCH ×2 (09:54→21:53)
[2018-09-24] MEDS: Senna/Docusate Sodium 8.6/50 MG Tablet PO SCH ×2 (09:56→21:55)
--- NOTE | 2018-09-24 10:39 | P.PNCC ---
Subjective Subjective Remarks/Hospital Course: 63yM presenting with altered mental status. As per the patient's spouse, the patient has been switching from hydrocodone to methadone over the past several weeks; she says "they just keep going up on the dose every time he goes for an appointment" but is unsure of what dose the patient is currently taking. She says that he's been increasingly confused in the mornings after he takes his medications but typically becomes more alert in the afternoon. He's been taking ibuprofen "by the handful, like candy" for the past 1-2 weeks to help with his chronic back pain, and his spouse brought him to the ED today when she noticed that he was increasingly more confused than usual. The patient was seen in the ED and found to have acute kidney injury, pulmonary edema, and presumed uremic encephalopathy. The patient is a very poor historian and is unable to provide further details of HPI or ROS. He and his spouse do not know what home meds he is on or the doses. 09/24/18: On my evaluation in a.m. patient remained on BiPAP. Oxygen saturation is maintaining well. Mental status seems to be improving. Bilateral crackles present on exam. Urine output 2.2 L in 24 hours. Creatinine is improved from 4.9 to 3.4. BUN marginally improved Objective Vital Signs / I&O: Vital Signs 09/23/18 15:48 09/23/18 15:52 09/23/18 16:13 Temperature 98.4 F Pulse Rate 90 90 Respiratory Rate 20 24 Blood Pressure 134/77 145/68 H Pulse Oximetry 88 L 91 L 90 L 09/23/18 17:35 09/23/18 19:23 09/23/18 19:30 Temperature Pulse Rate 80 80 Respiratory Rate 31 H 15 Blood Pressure 120/61 116/91 H Pulse Oximetry 82 L 98 99 09/23/18 20:00 09/23/18 20:03 09/23/18 20:07 Temperature Pulse Rate 78 Respiratory Rate 18 Blood Pressure Pulse Oximetry 94 L 99 09/23/18 21:00 09/23/18 21:02 09/23/18 22:00 Temperature 98.9 F 98.9 F Pulse Rate 82 80 Respiratory Rate 18 18 Blood Pressure 129/60 120/59 L Pulse Oximetry 94 L 93 L 94 L 09/23/18 23:00 09/23/18 23:29 09/24/18 00:00 Temperature 98.9 F 98.7 F Pulse Rate 79 75 73 Respiratory Rate 16 16 18 Blood Pressure 116/59 L 104/56 L Pulse Oximetry 95 93 L 09/24/18 00:28 09/24/18 01:00 09/24/18 02:00 Temperature 98.7 F 98.7 F Pulse Rate 69 75 Respiratory Rate 16 17 Blood Pressure 110/56 L 117/57 L Pulse Oximetry 94 L 93 L 93 L 09/24/18 03:00 09/24/18 03:54 09/24/18 04:00 Temperature 98.7 F 98.5 F Pulse Rate 87 78 77 Respiratory Rate 17 14 19 Blood Pressure 117/57 L 135/77 Pulse Oximetry 93 L 95 95 09/24/18 05:00 09/24/18 06:00 09/24/18 07:24 Temperature 98.5 F 98.5 F Pulse Rate 77 82 78 Respiratory Rate 18 22 22 Blood Pressure 129/60 133/65 Pulse Oximetry 95 95 92 L Intake & Output 09/23/18 09/24/18 09/24/18 18:59 06:59 18:59 Intake Total 450 / 450 1000 / 1000 Output Total 2200 / 2200 Balance 450 / 450 -1200 / -1200 Weight 106.594 kg 101.3 kg Intake: IV 450 / 450 1000 / 1000 Sodium Bicarbonate 8.4% Inj 50 1000 / 1000 MEQ In D5W Inj 950 ML @ 100 mls /hr IV.CONT .Q10H ADITHYA Rx#: [id number] Vancomycin Inj 1,000 MG In NS 250 / 250 Inj 250 ML @ 250 mls/hr IV.SIG ONCE ONE Rx#:[id number] Rocephin Inj 1,000 MG In NS Inj 100 / 100 100 ML @ 200 mls/hr IV.SIG ONCE ONE Rx#:[id number] Flagyl 500 MG Inj 100 ML @ 100 100 / 100 mls/hr IV.SIG ONCE ONE Rx#: [id number] Output: Urine Amount (Catheter) 2199 / 0 Indwelling Urethral Catheter 2199 / 2199 Other: Weight On Admission 102.1 kg Result Diagrams: 09/24/18 04:06 09/24/18 04:06 Objective Remarks: GEN: Well-nourished, breathing comfortably on BiPAP. HEENT: NCAT, mucosa dry NECK: Trachea midline, no JVD CARDIO: Regular rate and rhythm, no murmurs PULM: Diminished breath sounds at bases with faint mid-field crackles bilaterally, tolerating BiPAP ABD/GI: Soft, non-distended, non-tender in all quadrants MSK: Trace peripheral edema SKIN: No rashes or lesions NEURO: Alert and oriented, poor historian, requires frequent redirection, moves all extremities Assessment and Plan - Assessment and Plan Plan: 63yM presenting with acute metabolic encephalopathy, acute kidney injury, pulmonary edema, elevated troponin, and metabolic acidosis NEURO: Acute metabolic encephalopathy, likely due to uremia vs medication effect Chronic opiate dependence -Patient is unsure of what dose of methadone he's on at home, will hold for now as he is encephalopathic but will need to clarify dose in AM to prevent acute withdrawal -Frequent neuro checks -CTH showed no acute pathology -No reported history of alcohol or illicit drug abuse/ dependence CARDIO: History of hypertension History of dyslipidemia Elevated troponin -Patient does not know what meds he takes at home for either of these conditions , will need home meds clarified -Cardiac monitoring -Trend trops -2D echo in the setting of new pulmonary edema and elevated trop, more likely due to renal failure rather than ACS -Cardiology consult -Patient reports no chest pain at present, EKG shows no concerning ST or T wave changes -Daily ASA -Continue subcu heparin no indication for systemic anticoagulation PULM: Acute pulmonary edema Possible aspiration pneumonitis Acute respiratory failure requiring non-invasive ventilation via BiPAP -Bipap overnight to aid with pulmonary edema -Repeat CXR and ABG as needed -Diuresis as outlined below -Patient received a dose of ceftriaxone, metronidazole, and vancomycin in ED over concern for possible aspiration; will observe off antibiotics for now as patient is afebrile and has only mild leukocytosis -ABG on FiO2 of 0.5 is 7.24/ 45.9/ 53.4/ 19.2/ -6.8, indicates metabolic acidosis rather than respiratory cause (see below) F/E/N, RENAL: Acute kidney injury Acute metabolic acidosis -NPO while on bipap, ok to have ice chips -Bicarb gtt @ 100 cc/hr as patient likely has a component of RTA due to subacute / chronic NSAID overdose -Creat 4.92, now improved to 3.4 -Urine output >2.2L with IV Lasix, strict Is/Os, requires continuation of Baca catheter -F/u urine eosinophils -CPK 5000 -Urine pH 5.0 -Consider nephrology consult if kidney function worsens ENDO: Questionable history of diabetes mellitus -Patient is unsure of whether he has been diagnosed with this in the past, does not currently take any medications for DM -Sliding scale insulin as needed PROPHY: -SCDs, SQH -PPI OVERALL: This patient is critically ill and requires ICU level of care. He is at risk for decompensation. Counseling/ Coordination of Care: This patient is critically ill with impairment of one or more vital organ systems with a high probability of imminent or life-threatening deterioration. High-complexity medical decision making was required to support vital organ function and/ or prevent deterioration in the patient's condition. Total critical care time spent is 35 minutes giving full attention to this patient. This includes examining the patient, gathering history from someone other than the patient (i.e. chart review), discussing the patient's care with other providers, managing the patient's blood pressure and ventilator settings, ordering and interpreting radiologic studies, ordering and interpreting laboratory values, managing the patient's sedation requirements, re-evaluation at frequent intervals, and documentation. Amount of time is separate from teaching, counseling the patient and/or family, and exclusive of procedures.
--- NOTE | 2018-09-24 12:27 | ECG ---
Date Performed: 09/23/2018 Time Performed: 16:09:06 PTAGE: 63 years EKG: Sinus rhythm MODERATE VOLTAGE CRITERIA FOR LVH, CONSIDER NORMAL VARIANT NONSPECIFIC T-WAVE ABNORMALITY BORDERLINE ECG Since the PREVIOUS TRACING , no significant change noted PREVIOUS TRACIN04/01/2009 13.53 DOCTOR: Jose Beal Interpretating Date/Time 09/24/2018 12:21:52
--- NOTE | 2018-09-24 14:36 | P.CONNP ---
History of Present Illness Service: Nephrology Reason for Consult: RENE Primary Care Provider: No Primary Care Physician Chief Complaint: Altered mental status History of Present Illness: This is a 63 year old male with history of chronic pain. Apparently was taking Ibuprofen "by the handful". Also was taking narcotics. Admitted with renal failure, and altered mental status. Creatinine was 4.92, BUN 115, CO2 20 on admission. No previous labs are available. Renal function has improved today, he was given IVF. Creatinine today is 3.42. He has a Baca catheter, has very good urine output. He is on a bicarbonate drip. Patient is a poor historian, sleepy, not able to provide history. Review of Systems unobtainable due to mental condition PMFSH - History History Provided By: Patient, Medical Record - Medical History Medical History: Medical History (Last Reviewed 09/23/18 @ 19:13 by Florence Villarreal DO) HTN (hypertension) Hyperlipidemia - Tobacco History Second Hand Smoke Exposure: No Tobacco Use In Past 30 Days: Yes Smoking Status: Current every day smoker Tobacco Type: Cigarettes - Alcohol History How Often Do You Have a Drink Containing Alcohol: Never - Substance Use History Substance History: No History of Abuse - Travel History Recent Travel in the [place] Within the Last 8 Weeks: No Recent Travel Out of the Country Within the Last 8 Weeks: No - Immunization History Tetanus Immunization: Unable to Assess Hx Influenza Vaccine This Season: Unable to Assess Medications and Allergies Active Medications: Active Medications Acetaminophen (Tylenol) 650 mg PO Q6H PRN PRN Reason: PAIN 1-10 AND/OR FEVER >101F Al Hydroxide/Mg Hydroxide (Milk Of Magnchrist Liq) 30 ml PO Q12H PRN PRN Reason: Mild Constipation Albuterol (Duoneb Neb (Prn)) 1 ampul NEB Q2HR NEB PRN PRN Reason: WHEEZING Albuterol (Duoneb Neb (Harsh)) 1 ampul NEB Q4HR NEB [facility] Last Admin: 09/24/18 10:57 Dose: 1 ampul Aspirin (Ecotrin) 81 mg PO DAILY [facility] Last Admin: 09/24/18 14:01 Dose: 81 mg Bisacodyl (Dulcolax Supp) 10 mg RECTAL DAILY PRN PRN Reason: SEVERE CONSITIPATION Chlorhexidine Gluconate (Chlorhexidine 2% Cloth) 3 pack TOPICAL DAILY@0400 [facility] Stop: 09/29/18 03:59 Last Admin: 09/24/18 04:57 Dose: 3 pack Chlorhexidine Gluconate (Chlorhexidine 2% Cloth) 3 pack TOPICAL DAILY@0400 PRN PRN Reason: Extra cloth needed Stop: 09/29/18 03:59 Dextrose (D50w Vial) 50 ml IV.PUSH UNSCH PRN PRN Reason: PER HYPOGLYCEMIA PROTOCOL Famotidine (Pepcid) 10 mg PO BID [facility] Last Admin: 09/24/18 09:54 Dose: Not Given Famotidine (Pepcid Pf Inj) 10 mg IV.PUSH Q12HR [facility] Last Admin: 09/24/18 09:54 Dose: 10 mg Glucagon (Glucagon Inj) 1 mg OTHER PRN PRN PRN Reason: for Hypoglycemia Protocol Heparin Sodium (Porcine) (Heparin Inj) 5,000 units SQ Q8H [facility] Last Admin: 09/24/18 14:01 Dose: 5,000 units Dextrose/Sodium Chloride (D5w/1/2 Ns Inj) 1,000 mls @ 75 mls/hr IV.CONT .[id number] [facility] Insulin Human Regular (Novolin R Correctional Sugar Inj) 0 units SQ Q6HR [facility]; Protocol Last Admin: 09/24/18 14:09 Dose: Not Given Lactulose (Lactulose Liq) 30 ml PO DAILY PRN PRN Reason: SEVERE CONSITIPATION Ondansetron HCl (Zofran Inj) 4 mg IV.PUSH Q6H PRN PRN Reason: NAUSEA OR VOMITING Senna/Docusate Sodium (Ofelia-Colace) 1 tab PO BID [facility] Last Admin: 09/24/18 09:56 Dose: 1 tab Sennosides (Senokot) 17.2 mg PO Q12H PRN PRN Reason: Moderate Constipation Sodium Chloride (Ns Flush) 2 ml IV.FLUSH BID [facility] Last Admin: 09/24/18 09:55 Dose: 2 ml Sodium Chloride (Ns Flush) 2 ml IV.FLUSH PRN PRN PRN Reason: FLUSH AFTER USING IV ACCESS Allergies Allergy/AdvReac Type Severity Reaction Status Date / Time penicillin G Allergy Mild UNKNOWN Verified 09/23/18 15:52 Home Medications Medication Instructions Recorded Confirmed Type lisinopril 09/23/18 09/23/18 History Exam Vital signs: Vital Signs 09/23/18 15:48 09/23/18 15:52 09/23/18 16:13 Temperature 98.4 F Pulse Rate 90 90 Respiratory Rate 20 24 Blood Pressure 134/77 145/68 H Pulse Oximetry 88 L 91 L 90 L 09/23/18 17:35 09/23/18 19:23 09/23/18 19:30 Temperature Pulse Rate 80 80 Respiratory Rate 31 H 15 Blood Pressure 120/61 116/91 H Pulse Oximetry 82 L 98 99 09/23/18 20:00 09/23/18 20:03 09/23/18 20:07 Temperature Pulse Rate 78 Respiratory Rate 18 Blood Pressure Pulse Oximetry 94 L 99 09/23/18 21:00 09/23/18 21:02 09/23/18 22:00 Temperature 98.9 F 98.9 F Pulse Rate 82 80 Respiratory Rate 18 18 Blood Pressure 129/60 120/59 L Pulse Oximetry 94 L 93 L 94 L 09/23/18 23:00 09/23/18 23:29 09/24/18 00:00 Temperature 98.9 F 98.7 F Pulse Rate 79 75 73 Respiratory Rate 16 16 18 Blood Pressure 116/59 L 104/56 L Pulse Oximetry 95 93 L 09/24/18 00:28 09/24/18 01:00 09/24/18 02:00 Temperature 98.7 F 98.7 F Pulse Rate 69 75 Respiratory Rate 16 17 Blood Pressure 110/56 L 117/57 L Pulse Oximetry 94 L 93 L 93 L 09/24/18 03:00 09/24/18 03:54 09/24/18 04:00 Temperature 98.7 F 98.5 F Pulse Rate 87 78 77 Respiratory Rate 17 14 19 Blood Pressure 117/57 L 135/77 Pulse Oximetry 93 L 95 95 09/24/18 05:00 09/24/18 06:00 09/24/18 07:24 Temperature 98.5 F 98.5 F Pulse Rate 77 82 78 Respiratory Rate 18 22 22 Blood Pressure 129/60 133/65 Pulse Oximetry 95 95 92 L 09/24/18 10:57 Temperature Pulse Rate 70 Respiratory Rate 25 H Blood Pressure Pulse Oximetry Intake & Output 09/23/18 09/24/18 09/24/18 18:59 06:59 18:59 Intake Total 450 / 450 1000 / 1000 Output Total 2200 / 2200 Balance 450 / 450 -1200 / -1200 Weight 106.594 kg 101.3 kg Intake: IV 450 / 450 1000 / 1000 Sodium Bicarbonate 8.4% Inj 50 1000 / 1000 MEQ In D5W Inj 950 ML @ 100 mls /hr IV.CONT .Q10H [facility] Rx#: [id number] Vancomycin Inj 1,000 MG In NS 250 / 250 Inj 250 ML @ 250 mls/hr IV.SIG ONCE ONE Rx#:[id number] Rocephin Inj 1,000 MG In NS Inj 100 / 100 100 ML @ 200 mls/hr IV.SIG ONCE ONE Rx#:[id number] Flagyl 500 MG Inj 100 ML @ 100 100 / 100 mls/hr IV.SIG ONCE ONE Rx#: [id number] Output: Urine Amount (Catheter) 2199 / 2199 Indwelling Urethral Catheter 2199 Other: Weight On Admission 102.1 kg - Constitutional no acute distress, somnolent - Routine HEENT Exam Head: Present: normocephalic, atraumatic Eye: Present: EOMI, PERRL ENT: Present: mucous membranes moist - Routine Neck Exam Present: supple. Absent: JVD, lymphadenopathy, thyromegaly - Routine Respiratory Exam Present: CTA bilaterally. Absent: accessory muscle use - Routine Cardiovascular Exam Present: RRR, S1, S2 - Routine Extremities Exam Absent: edema, AV fistula - Routine Skin Exam Present: intact - Routine Neurological Exam Present: altered mental status, moving all extremities Results - Lab Results 09/24/18 04:06 09/24/18 04:06 Most recent lab results ABG pH 7.31 (7.380-7.420) L 09/24/18 04:33 ABG pCO2 46 mmHg (38-42) H 09/24/18 04:33 ABG pO2 100 mmHG (61-120) 09/24/18 04:33 ABG HCO3 22 mmol/L (22-26) 09/24/18 04:33 Calcium 8.2 mg/dL (8.5-10.1) L 09/24/18 04:06 Phosphorus 6.2 mg/dL (2.5-4.9) H 09/24/18 04:06 Magnesium 2.6 mg/dL (1.5-2.5) H 09/24/18 04:06 Assessment and Plan - Assessment (1) Acute kidney injury Code(s): N17.9 - Acute kidney failure, unspecified Status: Acute Plan: Clinical picture is consistent with rhabdomyolysis. His CPK is high, UA revealed moderate blood but very few RBCs. Changed IVF to D51/2NS at 75 ml/hour. He was given Lasix presumably because of pulmonary edema. Monitor I/O. Avoid nephrotoxic agents. Monitor CPK. Renal function has improved. Patient was also taking Ibuprofen and narcotics. NSAID could have contributed to the development of renal failure. No need for bicarbonate drip at this time, I have changed it to D51/2NS (2) Essential (primary) hypertension Code(s): I10 - Essential (primary) hypertension Status: Acute Plan: Suspend Lisinopril for the time being. (3) Metabolic acidosis Code(s): E87.2 - Acidosis Status: Acute Plan: Improved. Likely was due to renal failure. (4) Encephalopathy acute Code(s): G93.40 - Encephalopathy, unspecified Status: Acute Plan: metabolic encephalopathy, also due to chronic narcotic use. Monitor. Supportive care. - Attending Attestation Thanks for the consult.
[2018-09-24] MEDS: Dextrose 5%/NaCl 0.45% Inj 1,000 ML IV.CONT SCH (17:05)
--- NOTE | 2018-09-24 19:01 | US ---
EXAM DATE: 09/24/2018 6:55 PM EST AGE/SEX: 63 years / Male INDICATIONS: Increased BUN/Creatnine. CLINICAL DATA: This is the patient's initial encounter. Patient reports that signs and symptoms have been present for 1 day and indicates a pain score of 0/10. MEDICAL/SURGICAL HISTORY: Hypertension. Hyperlipidemia. None. COMPARISON: No prior exams available for comparison. MEASUREMENTS: Right Kidney:__10.9 x 4.6 x 5.0 cm Left Kidney:__11.7 x 4.8 x 6.5 cm FINDINGS: Right Kidney: Increased echogenicity. No mass or hydronephrosis. Left Kidney: Increased echogenicity. No mass or hydronephrosis. Bladder: Baca catheter is present. Bladder decompressed. Other: None. CONCLUSION: 1. Mildly increased renal echogenicity characteristic of medical renal disease. 2. 1 cm right renal cyst. No hydronephrosis. Electronically signed by: Sherman Pelaez MD Board Certified Radiologist 09/24/2018 7:00 PM EST
[2018-09-25] MEDS: Insulin NovoLIN Regular Correctional Sugar Inj SQ SCH ×5 (00:54→23:05)
--- NOTE | 2018-09-25 02:35 | MB ---
cc: Valdo Hutson DO DATE: 09/24/2018 REASON FOR CONSULTATION: Elevated troponin. HISTORY OF PRESENT ILLNESS: Tom Perry is a pleasant 63-year-old male who presented to [facility] due to multiple issues. He has recently been trying to get off hydrocodone and has not taken in over the past month to a [id number]. He was being switched over to methadone over the past few weeks and they have been increasing his dose every time he goes for an appointment. Apparently when he takes it in the morning, he gets confused, but more alert into the afternoon. He has also been taking ibuprofen by the handful for the past 1-2 weeks to help with his chronic back pain. As he was recently more confused than usual, his fiancee brought him into the emergency room. On arrival, he was found to be in acute kidney injury with pulmonary edema and uremic encephalopathy. He was found to have an elevated troponin. In discussing with him, he denies any chest pain or shortness of breath at this time, although he has since been diuresed for his pulmonary edema. PAST MEDICAL HISTORY: 1. Hypertension. 2. Hyperlipidemia. 3. Chronic back pain. PAST SURGICAL HISTORY: Denies. ALLERGIES: PENICILLIN. MEDICATIONS: 1. Methadone, unknown dose. 2. Lisinopril, unknown dose. SOCIAL HISTORY: Smokes tobacco daily. Denies alcohol or drug abuse. Currently off oxycodone attempting to be placed on methadone. REVIEW OF SYSTEMS: Fourteen systems were reviewed including osteopathic. Pertinent positives and negatives above, otherwise negative. PHYSICAL EXAMINATION: VITAL SIGNS: Temperature 98.3, heart rate 66, blood pressure 112/57, respirations 16, pulse oximetry 97% on 3 liters. GENERAL: The patient appears well, in no acute distress. Alert, awake and oriented x3. HEENT: Extraocular muscles intact. Mucous membranes moist. NECK: Supple. No JVD at 45 degrees. No carotid bruits heard bilaterally. Carotid upstroke is brisk in nature. HEART: Regular rate and rhythm. Positive first and second heart sounds with no noted murmurs, gallops or rubs. LUNGS: Clear to auscultation bilaterally. No wheezes, rales or rhonchi. ABDOMEN: Soft, nontender, and nondistended. No organomegaly noted. EXTREMITIES: Show no clubbing, cyanosis or edema. Femoral and distal pulses are intact bilaterally. NEUROLOGIC: No focal deficits. SKIN: Warm, dry and intact. OSTEOPATHIC: No kyphoscoliosis, lordosis or paraspinal tender points. LABORATORY DATA: Hemoglobin 11.2, hematocrit 33.3, platelets 253. Potassium 3.6, BUN 109, creatinine 3.42, down from 4.92. Creatinine kinase 4758, down from 7448. Troponin 0.69. Electrocardiogram (09/23/2018 16:09): Sinus rhythm, LVH, nonspecific ST-T wave changes. IMPRESSION: 1. Elevated troponin. 2. Rhabdomyolysis. 3. Acute kidney injury. 4. Chronic back pain, currently on methadone. 5. Confusion with medications. RECOMMENDATIONS: 1. Mr. Perry presented with increasing confusion, which was thought to be possibly due to medications, but also possible uremic encephalopathy. 2. He was found to have pulmonary edema and has since been diuresed. 3. He did have a minimally elevated troponin, but to go with this, he appears to have rhabdomyolysis. 4. He has no symptoms of current coronary ischemia, although he was in pulmonary edema, which possibly could be due to his acute kidney injury. 5. Troponin elevation can be due to his overall creatinine, as well as rhabdomyolysis. 6. We will check a 2-D echo to look at his overall left ventricular function, cardiac structure and possible valvulopathies. 7. Eventually, he will need to undergo an ischemic evaluation. Most likely, this will be a stress test, but this will be further evaluated based on the echo results. Thank you for allowing me to see Tom Perry. If there are any questions, please do not hesitate to call. Valdo Hutson DO VGP/sv , 02:00 AM , 02:12 AM
[2018-09-25] MEDS: Heparin - SQ 10,000 UNITS/ML Vial SQ SCH ×3 (03:57→20:23)
[2018-09-25] MEDS: Dextrose 5%/NaCl 0.45% Inj 1,000 ML IV.CONT SCH (03:57)
[2018-09-25] MEDS: Chlorhexidine Gluconate 2% 1 Pack (2 Cloths) TOPICAL SCH (03:57)
--- NOTE | 2018-09-25 08:04 | P.PNCC ---
Subjective Subjective Remarks/Hospital Course: 63yM presenting with altered mental status. As per the patient's spouse, the patient has been switching from hydrocodone to methadone over the past several weeks; she says "they just keep going up on the dose every time he goes for an appointment" but is unsure of what dose the patient is currently taking. She says that he's been increasingly confused in the mornings after he takes his medications but typically becomes more alert in the afternoon. He's been taking ibuprofen "by the handful, like candy" for the past 1-2 weeks to help with his chronic back pain, and his spouse brought him to the ED today when she noticed that he was increasingly more confused than usual. The patient was seen in the ED and found to have acute kidney injury, pulmonary edema, and presumed uremic encephalopathy. The patient is a very poor historian and is unable to provide further details of HPI or ROS. He and his spouse do not know what home meds he is on or the doses. 09/24/18: On my evaluation in a.m. patient remained on BiPAP. Oxygen saturation is maintaining well. Mental status seems to be improving. Bilateral crackles present on exam. Urine output 2.2 L in 24 hours. Creatinine is improved from 4.9 to 3.4. BUN marginally improved 09/25/18: Sitting up in ICU bed good oxygen saturation on nasal cannula. Labs are pending today. Urine output excellent 2.7 L in 24 hours. Chest x-ray ordered for a.m. Objective Vital Signs / I&O: Vital Signs 09/24/18 08:00 09/24/18 09:00 09/24/18 10:00 Temperature 98.1 F Pulse Rate 79 84 88 Respiratory Rate 25 H 25 H 30 H Blood Pressure 127/67 138/65 144/76 H Pulse Oximetry 92 L 93 L 09/24/18 10:57 09/24/18 11:00 09/24/18 12:00 Temperature 98.3 F Pulse Rate 70 81 81 Respiratory Rate 25 H 23 40 H Blood Pressure 159/76 H 159/67 H Pulse Oximetry 90 L 09/24/18 13:00 09/24/18 14:00 09/24/18 15:00 Temperature Pulse Rate 81 86 82 Respiratory Rate 25 H 24 25 H Blood Pressure 150/66 H 137/63 149/101 H Pulse Oximetry 09/24/18 15:02 09/24/18 15:12 09/24/18 16:00 Temperature Pulse Rate 76 86 84 Respiratory Rate 20 24 23 Blood Pressure 137/68 144/68 H Pulse Oximetry 93 L 09/24/18 17:00 09/24/18 18:00 09/24/18 19:00 Temperature Pulse Rate 84 87 96 H Respiratory Rate 21 17 39 H Blood Pressure 155/72 H 178/84 H Pulse Oximetry 82 L 09/24/18 19:01 09/24/18 19:07 09/24/18 20:00 Temperature 98.5 F Pulse Rate 84 80 88 Respiratory Rate 20 16 23 Blood Pressure 152/69 H 136/64 Pulse Oximetry 92 L 09/24/18 20:33 09/24/18 21:00 09/24/18 22:00 Temperature 98.8 F 98.2 F Pulse Rate 87 88 Respiratory Rate 24 27 H Blood Pressure 138/63 145/73 H Pulse Oximetry 93 L 84 L 93 L 09/24/18 23:00 09/24/18 23:38 09/25/18 00:00 Temperature Pulse Rate 89 91 H 86 Respiratory Rate 32 H 18 24 Blood Pressure 162/77 H 156/73 H Pulse Oximetry 83 L 09/25/18 01:00 09/25/18 01:01 09/25/18 02:00 Temperature Pulse Rate 90 90 89 Respiratory Rate 23 25 H 26 H Blood Pressure 152/77 H 145/88 H Pulse Oximetry 93 L 94 L 09/25/18 03:00 09/25/18 03:34 09/25/18 03:50 Temperature Pulse Rate 93 H 82 93 H Respiratory Rate 25 H 14 18 Blood Pressure 156/72 H 151/72 H Pulse Oximetry 91 L 09/25/18 04:00 09/25/18 05:00 09/25/18 06:00 Temperature Pulse Rate 95 H 84 79 Respiratory Rate 27 H 20 20 Blood Pressure 173/81 H 162/77 H 184/79 H Pulse Oximetry 91 L 86 L 87 L 09/25/18 07:00 Temperature Pulse Rate 86 Respiratory Rate 24 Blood Pressure 162/78 H Pulse Oximetry Intake & Output 09/24/18 09/25/18 09/25/18 18:59 06:59 18:59 Intake Total 1500 / 1500 Output Total 2700 / 2700 Balance -1200 / -1200 Weight 97.2 kg Intake: IV 1000 / 1000 D5W/1/2 NS Inj 1,000 ML @ 75 1000 / 1000 mls/hr IV.CONT .[id number] [facility] Rx# :[id number] Oral 500 / 500 Output: Stool 0 / 0 Urine/Stool Mix 0 / 0 Urine Amount (Catheter) 2700 / 2700 Indwelling Urethral Catheter 2700 / 2700 Other: Date of Last Bowel Movement 09/23/18 # Bowel Movements 0 # Incontinent Bowel Movements 0 Result Diagrams: 09/24/18 04:06 09/24/18 04:06 Objective Remarks: GEN: Well-nourished, breathing comfortably on NC HEENT: NCAT, mucosa dry NECK: Trachea midline, no JVD CARDIO: Regular rate and rhythm, no murmurs PULM: Diminished breath sounds at bases with faint mid-field crackles bilaterally ABD/GI: Soft, non-distended, non-tender in all quadrants MSK: Trace peripheral edema SKIN: No rashes or lesions NEURO: Alert and oriented, poor historian moves all extremities Assessment and Plan - Assessment and Plan Plan: 63yM presenting with acute metabolic encephalopathy, acute kidney injury, pulmonary edema, elevated troponin, and metabolic acidosis. Clinically improved with diuresis NEURO: Acute metabolic encephalopathy, likely due to uremia vs medication effect Chronic opiate dependence -Patient is unsure of what dose of methadone he's on at home, holding for now -Frequent neuro checks -CTH showed no acute pathology -No reported history of alcohol or illicit drug abuse/ dependence CARDIO: Elevated troponin, likely secondary to renal failure and rhabdo History of hypertension History of dyslipidemia -Need home meds clarified -Cardiac monitoring -Trend trops. Follow-up 2D echo -New pulmonary edema and elevated trop, more likely due to renal failure rather than ACS, however will need ischemia workup -Cardiology consult appreciated -Patient reports no chest pain at present, EKG shows no concerning ST or T wave changes -Daily ASA -Continue subcu heparin no indication for systemic anticoagulation PULM: Acute pulmonary edema Possible aspiration pneumonitis Acute respiratory failure requiring non-invasive ventilation via BiPAP -Bipap as to aid with pulmonary edema. Currently on nasal cannula -Repeat CXR and ABG as needed -Diuresis as outlined below -Patient received a dose of ceftriaxone, metronidazole, and vancomycin in ED over concern for possible aspiration; will observe off antibiotics for now as patient is afebrile and has only mild leukocytosis F/E/N, RENAL: Acute kidney injury Acute metabolic acidosis -Renal diet -Bicarb gtt @ 100 cc/hr as patient likely has a component of RTA due to subacute / chronic NSAID overdose-discontinue today -Creat 4.92, now improved to 3.4. Labs today are pending -Urine output >2.7L with IV Lasix, strict Is/Os, requires continuation of Baca catheter -CPK 5000 -Urine pH 5.0 -Nephrology consulted and following ENDO: Questionable history of diabetes mellitus -Patient is unsure of whether he has been diagnosed with this in the past, does not currently take any medications for DM -Sliding scale insulin as needed PROPHY: -SCDs, SQH -PPI OVERALL: Level 2 Consult hospitalist to assume care in a.m. Transferred to [facility] with telemetry
[2018-09-25] MEDS: Famotidine 20 MG Tablet PO SCH ×2 (08:16→20:25)
[2018-09-25] MEDS: Senna/Docusate Sodium 8.6/50 MG Tablet PO SCH ×2 (08:17→20:24)
[2018-09-25] MEDS: Famotidine PF Inj 20 MG/2 ML Vial IV.PUSH SCH ×2 (08:17→20:22)
[2018-09-25 08:43] LABS: Hematocrit 34.6 % (39.0-51.0); Hemoglobin 11.8 gm/dL (13.0-17.0); Mean Corpuscular Hemoglobin 33.4 pg (27.0-34.0); Mean Corpuscular Volume 98.1 fL (80.0-100.0); Mean Platelet Volume 8.5 fL (7.0-11.0); Platelet Count 260 th/mm3 (150-450); Red Blood Count 3.52 mil/mm3 (4.50-5.90); Red Cell Distribution Width 13.9 % (11.6-17.2)
[2018-09-25 08:52] LABS: Alanine Aminotransferase 67 U/L (12-78); Albumin 3.4 g/dL (3.4-5.0); Anion Gap 8 meq/L (5-15); Aspartate Aminotransferase 88 U/L (15-37); Blood Urea Nitrogen 52 mg/dL (7-18); Calcium 9.2 mg/dL (8.5-10.1); Carbon Dioxide 31.4 meq/L (21.0-32.0); Chloride 99 meq/L (98-107); Glomerular Filtration Rate 58 mL/min (>89); Glucose,Random 142 mg/dL (74-106); Potassium 3.4 meq/L (3.5-5.1); Sodium 138 meq/L (136-145)
[2018-09-25 08:53] LABS: Alkaline Phosphatase 58 U/L (45-117); Total Protein 7.7 g/dL (6.4-8.2)
[2018-09-25 08:58] LABS: Alanine Aminotransferase 62 U/L (12-78); Albumin 3.2 g/dL (3.4-5.0); Anion Gap 5 meq/L (5-15); Aspartate Aminotransferase 86 U/L (15-37); Blood Urea Nitrogen 52 mg/dL (7-18); Calcium 8.7 mg/dL (8.5-10.1); Carbon Dioxide 32.7 meq/L (21.0-32.0); Chloride 100 meq/L (98-107); Glomerular Filtration Rate 59 mL/min (>89); Glucose,Random 147 mg/dL (74-106); Magnesium 2.6 mg/dL (1.5-2.5); Potassium 3.5 meq/L (3.5-5.1); Sodium 138 meq/L (136-145)
[2018-09-25 09:00] LABS: Alkaline Phosphatase 60 U/L (45-117); Total Protein 7.4 g/dL (6.4-8.2)
--- NOTE | 2018-09-25 10:45 | P.PNCA ---
Subjective Interval history: No events overnight Breathing better No chest pain Medications and Allergies Active Medications: Active Medications Acetaminophen (Tylenol) 650 mg PO Q6H PRN PRN Reason: PAIN 1-10 AND/OR FEVER >101F Al Hydroxide/Mg Hydroxide (Milk Of Magnesia Liq) 30 ml PO Q12H PRN PRN Reason: Mild Constipation Albuterol (Duoneb Neb (Prn)) 1 ampul NEB Q2HR NEB PRN PRN Reason: WHEEZING Albuterol (Duoneb Neb (Harsh)) 1 ampul NEB Q4HR NEB [facility] Last Admin: 09/25/18 07:56 Dose: 1 ampul Aspirin (Ecotrin) 81 mg PO DAILY [facility] Last Admin: 09/25/18 08:16 Dose: 81 mg Bisacodyl (Dulcolax Supp) 10 mg RECTAL DAILY PRN PRN Reason: SEVERE CONSITIPATION Chlorhexidine Gluconate (Chlorhexidine 2% Cloth) 3 pack TOPICAL DAILY@0400 HARSH Stop: 09/29/18 03:59 Last Admin: 09/25/18 03:57 Dose: 3 pack Chlorhexidine Gluconate (Chlorhexidine 2% Cloth) 3 pack TOPICAL DAILY@0400 PRN PRN Reason: Extra cloth needed Stop: 09/29/18 03:59 Dextrose (D50w Vial) 50 ml IV.PUSH UNSCH PRN PRN Reason: PER HYPOGLYCEMIA PROTOCOL Famotidine (Pepcid) 10 mg PO BID [facility] Last Admin: 09/25/18 08:16 Dose: 10 mg Famotidine (Pepcid Pf Inj) 10 mg IV.PUSH Q12HR [facility] Last Admin: 09/25/18 08:17 Dose: Not Given Glucagon (Glucagon Inj) 1 mg OTHER PRN PRN PRN Reason: for Hypoglycemia Protocol Heparin Sodium (Porcine) (Heparin Inj) 5,000 units SQ Q8H [facility] Last Admin: 09/25/18 03:57 Dose: 5,000 units Dextrose/Sodium Chloride (D5w/1/2 Ns Inj) 1,000 mls @ 50 mls/hr IV.CONT .Q20H [facility] Last Admin: 09/25/18 03:57 Dose: 75 mls/hr Insulin Human Regular (Novolin R Correctional Sugar Inj) 0 units SQ Q6HR [facility]; Protocol Last Admin: 09/25/18 06:27 Dose: Not Given Lactulose (Lactulose Liq) 30 ml PO DAILY PRN PRN Reason: SEVERE CONSITIPATION Ondansetron HCl (Zofran Inj) 4 mg IV.PUSH Q6H PRN PRN Reason: NAUSEA OR VOMITING Senna/Docusate Sodium (Ofelia-Colace) 1 tab PO BID [facility] Last Admin: 09/25/18 08:17 Dose: 1 tab Sennosides (Senokot) 17.2 mg PO Q12H PRN PRN Reason: Moderate Constipation Sodium Chloride (Ns Flush) 2 ml IV.FLUSH BID [facility] Last Admin: 09/25/18 08:16 Dose: 2 ml Sodium Chloride (Ns Flush) 2 ml IV.FLUSH PRN PRN PRN Reason: FLUSH AFTER USING IV ACCESS Allergies Allergy/AdvReac Type Severity Reaction Status Date / Time penicillin G Allergy Mild UNKNOWN Verified 09/23/18 15:52 Home Medications Medication Instructions Recorded Confirmed Type lisinopril 09/23/18 09/23/18 History Physical Exam Vital signs: Vital Signs 09/24/18 10:57 09/24/18 11:00 09/24/18 12:00 Temperature 98.3 F Pulse Rate 70 81 81 Respiratory Rate 25 H 23 40 H Blood Pressure 159/76 H 159/67 H Pulse Oximetry 90 L 09/24/18 13:00 09/24/18 14:00 09/24/18 15:00 Temperature Pulse Rate 81 86 82 Respiratory Rate 25 H 24 25 H Blood Pressure 150/66 H 137/63 149/101 H Pulse Oximetry 09/24/18 15:02 09/24/18 15:12 09/24/18 16:00 Temperature Pulse Rate 76 86 84 Respiratory Rate 20 24 23 Blood Pressure 137/68 144/68 H Pulse Oximetry 93 L 09/24/18 17:00 09/24/18 18:00 09/24/18 19:00 Temperature Pulse Rate 84 87 96 H Respiratory Rate 21 17 39 H Blood Pressure 155/72 H 178/84 H Pulse Oximetry 82 L 09/24/18 19:01 09/24/18 19:07 09/24/18 20:00 Temperature 98.5 F Pulse Rate 84 80 88 Respiratory Rate 20 16 23 Blood Pressure 152/69 H 136/64 Pulse Oximetry 92 L 09/24/18 20:33 09/24/18 21:00 09/24/18 22:00 Temperature 98.8 F 98.2 F Pulse Rate 87 88 Respiratory Rate 24 27 H Blood Pressure 138/63 145/73 H Pulse Oximetry 93 L 84 L 93 L 09/24/18 23:00 09/24/18 23:38 09/25/18 00:00 Temperature Pulse Rate 89 91 H 86 Respiratory Rate 32 H 18 24 Blood Pressure 162/77 H 156/73 H Pulse Oximetry 83 L 09/25/18 01:00 09/25/18 01:01 09/25/18 02:00 Temperature Pulse Rate 90 90 89 Respiratory Rate 23 25 H 26 H Blood Pressure 152/77 H 145/88 H Pulse Oximetry 93 L 94 L 09/25/18 03:00 09/25/18 03:34 09/25/18 03:50 Temperature Pulse Rate 93 H 82 93 H Respiratory Rate 25 H 14 18 Blood Pressure 156/72 H 151/72 H Pulse Oximetry 91 L 09/25/18 04:00 09/25/18 05:00 09/25/18 06:00 Temperature Pulse Rate 95 H 84 79 Respiratory Rate 27 H 20 20 Blood Pressure 173/81 H 162/77 H 184/79 H Pulse Oximetry 91 L 86 L 87 L 09/25/18 07:00 09/25/18 07:56 09/25/18 08:00 Temperature 98.7 F Pulse Rate 86 84 79 Respiratory Rate 24 14 17 Blood Pressure 162/78 H 162/74 H Pulse Oximetry 89 L 09/25/18 08:50 09/25/18 09:00 09/25/18 10:00 Temperature Pulse Rate 92 H 80 Respiratory Rate 28 H 20 Blood Pressure 157/70 H 145/67 H Pulse Oximetry 92 L 89 L Intake & Output 09/24/18 09/25/18 09/25/18 18:59 06:59 18:59 Intake Total 1500 / 1500 Output Total 2700 / 2700 Balance -1200 / -1200 Weight 97.2 kg Intake: IV 1000 / 1000 D5W/1/2 NS Inj 1,000 ML @ 75 1000 / 1000 mls/hr IV.CONT .[id number] [facility] Rx# :[id number] Oral 500 / 500 Output: Stool 0 / 0 Urine/Stool Mix 0 / 0 Urine Amount (Catheter) 2700 / 2700 Indwelling Urethral Catheter 2700 / 2700 Other: Date of Last Bowel Movement 09/23/18 09/23/18 # Bowel Movements 0 # Incontinent Bowel Movements 0 Narrative: GEN: Well-nourished, appears confused, maintaining airway reflexes HEENT: NCAT, mucosa dry NECK: Trachea midline, no JVD CARDIO: Regular rate and rhythm, no murmurs PULM: Diminished breath sounds at bases with faint mid-field crackles bilaterally ABD/GI: Soft, non-distended, non-tender in all quadrants MSK: Trace peripheral edema SKIN: No rashes or lesions NEURO: Alert and oriented x 3, appears confused, very poor historian, requires frequent redirection, moves all extremities PSYCH: No agitation - Urinary Catheter Management Indwelling Urethral Catheter Cath placed during this visit: yes Reason for continuing: Hourly intake/output Insertion date: 09/23/18 Insertion time: 17:25 Results 09/25/18 07:33 09/25/18 08:21 Cardiac Enzymes 09/23/18 09/23/18 09/23/18 Range/Units 16:40 16:40 17:17 AST 200 H (15-37) U/L CK-MB (CK-2) 146.8 H (0.5-3.6) ng/mL Troponin I 0.58 H (0.02-0.05) ng/mL B-Natriuretic Peptide 239 H (0-100) pg/mL 09/23/18 09/24/18 09/25/18 Range/Units 19:57 04:06 07:33 AST 159 H 86 H (15-37) U/L CK-MB (CK-2) 72.9 H (0.5-3.6) ng/mL Troponin I 0.69 H* 0.66 H* (0.02-0.05) ng/mL B-Natriuretic Peptide (0-100) pg/mL 09/25/18 Range/Units 08:21 AST 88 H (15-37) U/L CK-MB (CK-2) (0.5-3.6) ng/mL Troponin I (0.02-0.05) ng/mL B-Natriuretic Peptide (0-100) pg/mL Coagulation 09/23/18 09/23/18 Range/Units 16:40 17:17 PT 10.7 (9.8-11.6) sec APTT 31.5 (23.4-31.7) sec B-Natriuretic Peptide 239 H (0-100) pg/mL CBC 09/23/18 09/24/18 09/25/18 Range/Units 16:40 04:06 07:33 WBC 13.1 H 9.5 8.0 (4.0-11.0) th/mm3 RBC 3.23 L 3.37 L 3.52 L (4.50-5.90) mil/mm3 Hgb 10.7 L 11.2 L 11.8 L (13.0-17.0) gm/dL Hct 31.6 L 33.3 L 34.6 L (39.0-51.0) % Plt Count 257 253 260 (150-450) th/mm3 Neut # (Auto) 10.8 H 8.0 H (1.8-7.7) th/mm3 Lymph # (Auto) 1.4 0.8 L (1.0-4.8) th/mm3 Ector # (Auto) 1.0 H 0.7 (0.0-0.9) th/mm3 Eos # (Auto) 0.0 0.0 (0.0-0.4) th/mm3 Baso # (Auto) 0.0 0.0 (0.0-0.2) th/mm3 Comprehensive Metabolic Panel 09/23/18 09/24/18 09/25/18 Range/Units 16:40 04:06 07:33 Sodium 133 L 136 138 (136-145) meq/L Potassium 4.8 3.6 D 3.5 (3.5-5.1) meq/L Chloride 98 98 100 (98-107) meq/L Carbon Dioxide 20.6 L 23.2 32.7 H D (21.0-32.0) meq/L BUN 115 H 109 H 52 H (7-18) mg/dL Creatinine 4.92 H 3.42 H 1.23 (0.60-1.30) mg/dL Calcium 7.9 L 8.2 L 8.7 (8.5-10.1) mg/dL AST 200 H 159 H 86 H (15-37) U/L ALT 68 70 62 (12-78) U/L Alkaline Phosphatase 65 54 60 (45-117) U/L Total Protein 7.4 7.2 7.4 (6.4-8.2) g/dL Albumin 3.7 3.4 3.2 L (3.4-5.0) g/dL 09/25/18 Range/Units 08:21 Sodium 138 (136-145) meq/L Potassium 3.4 L (3.5-5.1) meq/L Chloride 99 (98-107) meq/L Carbon Dioxide 31.4 (21.0-32.0) meq/L BUN 52 H (7-18) mg/dL Creatinine 1.25 (0.60-1.30) mg/dL Calcium 9.2 (8.5-10.1) mg/dL AST 88 H (15-37) U/L ALT 67 (12-78) U/L Alkaline Phosphatase 58 (45-117) U/L Total Protein 7.7 (6.4-8.2) g/dL Albumin 3.4 (3.4-5.0) g/dL Intake and Output 09/24/18 09/25/18 09/25/18 22:59 06:59 14:59 Intake Total 1500 / 1500 Output Total 2700 / 2700 Balance -1200 / -1200 Intake: IV 1000 / 1000 D5W/1/2 NS Inj 1,000 ML @ 75 1000 / 1000 mls/hr IV.CONT .[id number] [facility] Rx# :[id number] Oral 500 / 500 Output: Stool 0 / 0 Urine/Stool Mix 0 / 0 Urine Amount (Catheter) 2700 / 2700 Indwelling Urethral Catheter 2700 / 2700 Other: Date of Last Bowel Movement 09/23/18 09/23/18 # Bowel Movements 0 # Incontinent Bowel Movements 0 Weight 97.2 kg - Imaging and Cardiology Imaging: Impressions Chest X-Ray 09/23/18 16:19 CONCLUSION: 1. Mild cardiomegaly with pulmonary edema pattern. Head CT 09/23/18 16:19 CONCLUSION: 1. No acute intracranial abnormality. . . Chest X-Ray 09/24/18 05:00 CONCLUSION: Cardiomegaly and bilateral patchy airspace disease Abdomen/Bladder Ultrasound 09/24/18 12:43 CONCLUSION: 1. Mildly increased renal echogenicity characteristic of medical renal disease. 2. 1 cm right renal cyst. No hydronephrosis. Assessment and Plan - Assessment (1) Acute metabolic encephalopathy Code(s): G93.41 - Metabolic encephalopathy Status: Acute (2) Acute kidney injury Code(s): N17.9 - Acute kidney failure, unspecified Status: Acute (3) Pulmonary edema Code(s): J81.1 - Chronic pulmonary edema Status: Acute (4) Chronically on opiate therapy Code(s): Z79.891 - terminal gauger (current) use of opiate analgesic Status: Acute (5) Elevated troponin Code(s): R74.8 - Abnormal levels of other serum enzymes Status: Acute (6) Essential (primary) hypertension Code(s): I10 - Essential (primary) hypertension Status: Acute (7) Encephalopathy acute Code(s): G93.40 - Encephalopathy, unspecified Status: Acute - Plan 1. Elevated troponin. Most likely secondary to RENE and rhabdo No symptoms of ACS Pulmonary edema most likely secondary to RENE/CKD Eventual ischemic evaluation with stress testing 2. Rhabdomyolysis. 3. Acute kidney injury. Creatinine better 4. Chronic back pain, currently on methadone. 5. Confusion with medications. 6. Echo pending
--- NOTE | 2018-09-25 11:00 | ECHRPT ---
Indication: SHORTNESS OF BREATH CONCLUSIONS The left ventricular systolic function is normal with an estimated ejection fraction in the range of 60-65%. Moderate concentric left ventricular hypertrophy. Trace mitral valve regurgitation. There is trace tricuspid valve regurgitation. BP: / HR: Rhythm: Sinus MEASUREMENTS (Male / Female) Normal Values Technical Quality:Fair 2D ECHO LV Diastolic Diameter PLAX 3.8 cm 4.2 - 5.9 / 3.9 - 5.3 cm LV Systolic Diameter PLAX 2.8 cm IVS Diastolic Thickness 1.7 cm 0.6 - 1.0 / 0.6 - 0.9 cm LVPW Diastolic Thickness 1.7 cm 0.6 - 1.0 / 0.6 - 0.9 cm LV Relative Wall Thickness 0.9 RV Internal Dim ED PLAX 2.9 cm LVOT Diameter 2.1 cm Aortic Root Diameter 3.2 cm LA Systolic Diameter LX 3.1 cm 3.0 - 4.0 / 2.7 - 3.8 cm M-MODE AV Cusp Separation MM 2.1 cm DOPPLER AV Peak Velocity 208.0 cm/s AV Peak Gradient 17.3 mmHg AV Mean Gradient 10.0 mmHg AV Velocity Time Integral 36.1 cm LVOT Peak Velocity 88.0 cm/s LVOT Peak Gradient 3.1 mmHg LVOT Velocity Time Integral 17.0 cm AV Area Cont Eq vti 1.6 cm AV Area Cont Eq pk 1.5 cm Mitral E Point Velocity 96.7 cm/s Mitral A Point Velocity 90.8 cm/s Mitral E to A Ratio 1.1 LV E' Lateral Velocity 18.0 cm/s Mitral E to LV E' Lateral Ratio 5.4 LV E' Septal Velocity 10.7 cm/s Mitral E to LV E' Septal Ratio 9.0 PV Peak Velocity 87.2 cm/s PV Peak Gradient 3.0 mmHg FINDINGS LEFT VENTRICLE Normal left ventricular size. Moderate concentric left ventricular hypertrophy. The left ventricular systolic function is normal with an estimated ejection fraction in the range of 60-65%. No regional wall motion abnormalities are present. RIGHT VENTRICLE Normal right ventricular size and systolic function. LEFT ATRIUM The left atrial size is normal. RIGHT ATRIUM The right atrial size is normal. ATRIAL SEPTUM No atrial level shunt is demonstrated by color flow Doppler interrogation. AORTA The aortic root and proximal ascending aorta are normal in size on limited imaging. MITRAL VALVE Structurally normal mitral valve. Trace mitral valve regurgitation. No mitral valve stenosis. AORTIC VALVE Trileaflet aortic valve. No aortic valve stenosis or regurgitation. TRICUSPID VALVE Structurally normal tricuspid valve. There is trace tricuspid valve regurgitation. PULMONARY VALVE No pulmonary valve regurgitation or stenosis. VESSELS The inferior vena cava is normal in size. PERICARDIUM No pericardial effusion. Valdo Hutson DO (Electronically Signed) Final Date:25 September 2018 11:00
--- NOTE | 2018-09-25 11:15 | P.PNNP ---
Subjective Interval history: Renal function has improved. Non oliguric. He is much more alert. Physical Exam Vital signs: Vital Signs 09/24/18 12:00 09/24/18 13:00 09/24/18 14:00 Temperature 98.3 F Pulse Rate 81 81 86 Respiratory Rate 40 H 25 H 24 Blood Pressure 159/67 H 150/66 H 137/63 Pulse Oximetry 90 L 09/24/18 15:00 09/24/18 15:02 09/24/18 15:12 Temperature Pulse Rate 82 76 86 Respiratory Rate 25 H 20 24 Blood Pressure 149/101 H 137/68 Pulse Oximetry 09/24/18 16:00 09/24/18 17:00 09/24/18 18:00 Temperature Pulse Rate 84 84 87 Respiratory Rate 23 21 17 Blood Pressure 144/68 H 155/72 H 178/84 H Pulse Oximetry 93 L 09/24/18 19:00 09/24/18 19:01 09/24/18 19:07 Temperature Pulse Rate 96 H 84 80 Respiratory Rate 39 H 20 16 Blood Pressure 152/69 H Pulse Oximetry 82 L 09/24/18 20:00 09/24/18 20:33 09/24/18 21:00 Temperature 98.5 F 98.8 F Pulse Rate 88 87 Respiratory Rate 23 24 Blood Pressure 136/64 138/63 Pulse Oximetry 92 L 93 L 84 L 09/24/18 22:00 09/24/18 23:00 09/24/18 23:38 Temperature 98.2 F Pulse Rate 88 89 91 H Respiratory Rate 27 H 32 H 18 Blood Pressure 145/73 H 162/77 H Pulse Oximetry 93 L 09/25/18 00:00 09/25/18 01:00 09/25/18 01:01 Temperature Pulse Rate 86 90 90 Respiratory Rate 24 23 25 H Blood Pressure 156/73 H 152/77 H Pulse Oximetry 83 L 93 L 94 L 09/25/18 02:00 09/25/18 03:00 09/25/18 03:34 Temperature Pulse Rate 89 93 H 82 Respiratory Rate 26 H 25 H 14 Blood Pressure 145/88 H 156/72 H 151/72 H Pulse Oximetry 91 L 09/25/18 03:50 09/25/18 04:00 09/25/18 05:00 Temperature Pulse Rate 93 H 95 H 84 Respiratory Rate 18 27 H 20 Blood Pressure 173/81 H 162/77 H Pulse Oximetry 91 L 86 L 09/25/18 06:00 09/25/18 07:00 09/25/18 07:56 Temperature Pulse Rate 79 86 84 Respiratory Rate 20 24 14 Blood Pressure 184/79 H 162/78 H Pulse Oximetry 87 L 09/25/18 08:00 09/25/18 08:50 09/25/18 09:00 Temperature 98.7 F Pulse Rate 79 92 H Respiratory Rate 17 28 H Blood Pressure 162/74 H 157/70 H Pulse Oximetry 89 L 92 L 89 L 09/25/18 10:00 09/25/18 11:02 Temperature Pulse Rate 80 79 Respiratory Rate 20 16 Blood Pressure 145/67 H Pulse Oximetry Intake & Output 09/24/18 09/25/18 09/25/18 18:59 06:59 18:59 Intake Total 1500 / 1500 Output Total 2700 / 2700 Balance -1200 / -1200 Weight 97.2 kg Intake: IV 1000 / 1000 D5W/1/2 NS Inj 1,000 ML @ 75 1000 / 1000 mls/hr IV.CONT .[id number] [facility] Rx# :[id number] Oral 500 / 500 Output: Stool 0 / 0 Urine/Stool Mix 0 / 0 Urine Amount (Catheter) 2700 / 2700 Indwelling Urethral Catheter 2700 / 2700 Other: Date of Last Bowel Movement 09/23/18 09/23/18 # Bowel Movements 0 # Incontinent Bowel Movements 0 Narrative: GEN: Well-nourished, not in distress. HEENT: NCAT, mucosa dry NECK: Trachea midline, no JVD CARDIO: Regular rate and rhythm, no murmurs PULM: Diminished breath sounds at bases with faint mid-field crackles bilaterally ABD/GI: Soft, non-distended, non-tender in all quadrants MSK: Trace peripheral edema SKIN: No rashes or lesions NEURO: Alert and oriented x 3, more alert. Not confused today. PSYCH: No agitation - Urinary Catheter Management Indwelling Urethral Catheter Cath placed during this visit: yes Reason for continuing: Hourly intake/output Insertion date: 09/23/18 Insertion time: 17:25 Assessment and Plan - Assessment (1) Acute kidney injury Code(s): N17.9 - Acute kidney failure, unspecified Status: Acute Plan: could have been due to rhabdomyolysis. He also was taking Ibuprofen. Finally bladder retention should be considered, as output was more than intake. Taper off fluids. Consider voiding trial. Avoid nephrotoxic agents. (2) Essential (primary) hypertension Code(s): I10 - Essential (primary) hypertension Status: Acute Plan: Suspend Lisinopril for the time being. (3) Metabolic acidosis Code(s): E87.2 - Acidosis Status: Acute Plan: Improved. Likely was due to renal failure. (4) Encephalopathy acute Code(s): G93.40 - Encephalopathy, unspecified Status: Acute Plan: Improved. - Attending Attestation I will sign off at this time. Thanks.
[2018-09-26] MEDS: Chlorhexidine Gluconate 2% 1 Pack (2 Cloths) TOPICAL SCH (03:28)
[2018-09-26] MEDS: Heparin - SQ 10,000 UNITS/ML Vial SQ SCH ×3 (04:19→21:44)
[2018-09-26] MEDS: Insulin NovoLIN Regular Correctional Sugar Inj SQ SCH ×3 (05:04→17:41)
[2018-09-26] MEDS: Famotidine 20 MG Tablet PO SCH ×2 (09:10→21:44)
[2018-09-26] MEDS: Senna/Docusate Sodium 8.6/50 MG Tablet PO SCH ×2 (09:10→21:44)
[2018-09-26] MEDS: Famotidine PF Inj 20 MG/2 ML Vial IV.PUSH SCH (09:11)
[2018-09-26 10:41] LABS: Alanine Aminotransferase 67 U/L (12-78); Albumin 3.1 g/dL (3.4-5.0); Anion Gap 7 meq/L (5-15); Aspartate Aminotransferase 75 U/L (15-37); Blood Urea Nitrogen 25 mg/dL (7-18); Calcium 8.7 mg/dL (8.5-10.1); Carbon Dioxide 31.9 meq/L (21.0-32.0); Chloride 97 meq/L (98-107); Glomerular Filtration Rate 82 mL/min (>89); Glucose,Random 114 mg/dL (74-106); Sodium 136 meq/L (136-145)
[2018-09-26 10:48] LABS: Alkaline Phosphatase 56 U/L (45-117); Total Protein 7.1 g/dL (6.4-8.2)
--- NOTE | 2018-09-26 14:03 | P.PNIM ---
Subjective Interval history: awake and alert patient up and ambulating minimal cough- no sputum Physical Exam Vital signs: Vital Signs 09/25/18 16:00 09/25/18 16:03 09/25/18 16:08 Temperature 98.6 F Pulse Rate 79 78 Respiratory Rate 16 18 Blood Pressure 162/88 H Pulse Oximetry 95 94 L 09/25/18 20:00 09/25/18 20:03 09/26/18 00:00 Temperature 99.5 F 98.9 F Pulse Rate 88 75 83 Respiratory Rate 19 17 20 Blood Pressure 173/81 H 145/79 H Pulse Oximetry 93 L 95 94 L 09/26/18 00:20 09/26/18 04:00 09/26/18 04:01 Temperature 99.8 F H Pulse Rate 72 86 72 Respiratory Rate 15 18 14 Blood Pressure 171/92 H Pulse Oximetry 97 95 09/26/18 08:00 09/26/18 10:03 09/26/18 12:00 Temperature 99.0 F 98.7 F Pulse Rate 75 100 H 94 H Respiratory Rate 16 15 18 Blood Pressure 165/82 H 143/79 H Pulse Oximetry 95 98 09/26/18 12:14 09/26/18 12:15 Temperature Pulse Rate 80 Respiratory Rate 15 Blood Pressure Pulse Oximetry 98 Intake & Output 09/25/18 09/26/18 09/26/18 18:59 06:59 18:59 Intake Total 1680 / 1680 600 / 600 Output Total 1700 / 1700 200 / 200 Balance -20 / -20 400 / 400 Weight 98.7 kg Intake: Oral 1680 / 1680 600 / 600 Output: Urine 500 / 500 200 / 200 Urine Amount (Catheter) 1200 / 1200 Indwelling Urethral Catheter 1200 / 1200 Other: Date of Last Bowel Movement 09/23/18 09/25/18 09/25/18 Narrative: awake and alert, no distress anciteric thorat - no exudates neck supple lungs- no rales regular rhythm abdomens-fot nontendere xtrmeiteis no edema Urinary Catheter Management Indwelling Urethral Catheter: Cath placed during this visit: yes, but has since been removed by the nurse Reason for continuing: Other continuation reason Insertion date: 09/23/18 Insertion time: 17:25 Removal date: 09/25/18 Removal time: 11:30 Results Labs CBC & Chem 7: 09/25/18 07:33 09/26/18 07:39 Labs: Microbiology 09/23/18 17:17 Blood - Peripheral Aerobic Blood Culture - Preliminary No growth in 3 days 09/23/18 17:17 Blood - Peripheral Anaerobic Blood Culture - Preliminary No growth in 3 days 09/23/18 17:17 Blood - Peripheral Aerobic Blood Culture - Preliminary No growth in 3 days 09/23/18 17:17 Blood - Peripheral Anaerobic Blood Culture - Preliminary No growth in 3 days Assessment and Plan (1) Acute metabolic encephalopathy: Code(s): G93.41 - Metabolic encephalopathy Status: Acute (2) Acute kidney injury: Code(s): N17.9 - Acute kidney failure, unspecified Status: Acute (3) Pulmonary edema: Code(s): J81.1 - Chronic pulmonary edema Status: Acute (4) Chronically on opiate therapy: Code(s): Z79.891 - detention (current) use of opiate analgesic Status: Acute (5) Elevated troponin: Code(s): R74.8 - Abnormal levels of other serum enzymes Status: Acute (6) Essential (primary) hypertension: Code(s): I10 - Essential (primary) hypertension Status: Acute (7) Encephalopathy acute: Code(s): G93.40 - Encephalopathy, unspecified Status: Acute Plan 63yM presenting with acute metabolic encephalopathy, acute kidney injury, pulmonary edema, elevated troponin, and metabolic acidosis. Clinically improved with diuresis Acute metabolic encephalopathy, likely due to uremia vs medication effect- REsolved Chronic opiate dependence history of chronic pain- - he ff with Dr Chavez as OP - on methadone he's on at home- unsure of dose holding for now -CTH showed no acute pathology -No reported history of alcohol or illicit drug abuse/ dependence Elevated troponin, likely secondary to renal failure and rhabdo History of hypertension History of dyslipidemia -Need home meds clarified -Cardiac monitoring -Trend trops. 2D echo- good EF -Cardiology consult appreciated -Patient reports no chest pain at present, EKG shows no concerning ST or T wave changes -Daily ASA -Continue subcu heparin no indication for systemic anticoagulation d/w Dr. Hutson- he will need a stress test prior to discharge Acute pulmonary edema- improved Possible aspiration pneumonitis MIld leukoctyosis- imrpoved Acute respiratory failure requiring non-invasive ventilation via BiPAP -Bipap as to aid with pulmonary edema. Currently on nasal cannula -Patient received a dose of ceftriaxone, metronidazole, and vancomycin in ED over concern for possible aspiration; will observe off antibiotics for now as patient is afebrile and has only mild leukocytosis Acute kidney injury- resolved-voiding Acute metabolic acidosis- resolved Acute rhabdomyolysis - creatinine improved - check CPK level - ff- in am - on further questionign was taken a lot of Ibuprofen- advised - continue gentrle hydration Questionable history of diabetes mellitus -Patient is unsure of whether he has been diagnosed with this in the past, does not currently take any medications for DM - good readings here -Sliding scale insulin as needed Up and ambualting Advise aptient to ff up with PCP- Dr. valle and Pain managmeent Dr Chavez Progress Note: Quality VTE Deep Vein Thrombosis/Pulmonary Embolism Present on Admission: No _ (1) Pulmonary edema Qualifiers: Chronicity:
[2018-09-26] MEDS ORDERED: Sod Chloride 0.9% Inj 1,000 ML IV.CONT SCH (20:00)
[2018-09-27] MEDS ORDERED: Regadenoson Inj 0.4 MG/5 ML Syringe IV.PUSH ONE (01:22)
--- NOTE | 2018-09-27 01:22 | P.PNCA ---
Subjective Interval history: No events overnight Feels well Medications and Allergies Active Medications: Active Medications Acetaminophen (Tylenol) 650 mg PO Q6H PRN PRN Reason: PAIN 1-10 AND/OR FEVER >101F Al Hydroxide/Mg Hydroxide (Milk Of Magnesia Liq) 30 ml PO Q12H PRN PRN Reason: Mild Constipation Last Admin: 09/26/18 16:15 Dose: 30 ml Albuterol (Duoneb Neb (Prn)) 1 ampul NEB Q2HR NEB PRN PRN Reason: WHEEZING Albuterol (Duoneb Neb (Harsh)) 1 ampul NEB Q4HR NEB HARSH Last Admin: 09/26/18 23:24 Dose: 1 ampul Aspirin (Ecotrin) 81 mg PO DAILY [facility] Last Admin: 09/26/18 09:11 Dose: 81 mg Bisacodyl (Dulcolax Supp) 10 mg RECTAL DAILY PRN PRN Reason: SEVERE CONSITIPATION Chlorhexidine Gluconate (Chlorhexidine 2% Cloth) 3 pack TOPICAL DAILY@0400 [facility] Stop: 09/29/18 03:59 Last Admin: 09/26/18 03:28 Dose: Not Given Chlorhexidine Gluconate (Chlorhexidine 2% Cloth) 3 pack TOPICAL DAILY@0400 PRN PRN Reason: Extra cloth needed Stop: 09/29/18 03:59 Dextrose (D50w Vial) 50 ml IV.PUSH UNSCH PRN PRN Reason: PER HYPOGLYCEMIA PROTOCOL Famotidine (Pepcid) 10 mg PO BID [facility] Last Admin: 09/26/18 21:44 Dose: 10 mg Glucagon (Glucagon Inj) 1 mg OTHER PRN PRN PRN Reason: for Hypoglycemia Protocol Heparin Sodium (Porcine) (Heparin Inj) 5,000 units SQ Q8H [facility] Last Admin: 09/26/18 21:44 Dose: 5,000 units Sodium Chloride (Ns Inj) 1,000 mls @ 40 mls/hr IV.CONT .Q24H [facility] Last Admin: 09/26/18 21:44 Dose: 40 mls/hr Insulin Human Regular (Novolin R Correctional Sugar Inj) 0 units SQ Q6HR [facility]; Protocol Last Admin: 09/26/18 17:41 Dose: Not Given Lactulose (Lactulose Liq) 30 ml PO DAILY PRN PRN Reason: SEVERE CONSITIPATION Ondansetron HCl (Zofran Inj) 4 mg IV.PUSH Q6H PRN PRN Reason: NAUSEA OR VOMITING Senna/Docusate Sodium (Ofelia-Colace) 1 tab PO BID [facility] Last Admin: 09/26/18 21:44 Dose: 1 tab Sennosides (Senokot) 17.2 mg PO Q12H PRN PRN Reason: Moderate Constipation Sodium Chloride (Ns Flush) 2 ml IV.FLUSH BID [facility] Last Admin: 09/26/18 21:44 Dose: 2 ml Sodium Chloride (Ns Flush) 2 ml IV.FLUSH PRN PRN PRN Reason: FLUSH AFTER USING IV ACCESS Allergies Allergy/AdvReac Type Severity Reaction Status Date / Time penicillin G Allergy Mild UNKNOWN Verified 09/23/18 15:52 Home Medications Medication Instructions Recorded Confirmed Type lisinopril 09/23/18 09/23/18 History Physical Exam Vital signs: Vital Signs 09/26/18 04:00 09/26/18 04:01 09/26/18 08:00 Temperature 99.8 F H 99.0 F Pulse Rate 86 72 75 Respiratory Rate 18 14 16 Blood Pressure 171/92 H 165/82 H Pulse Oximetry 95 95 09/26/18 10:03 09/26/18 12:00 09/26/18 12:14 Temperature 98.7 F Pulse Rate 100 H 94 H 80 Respiratory Rate 15 18 15 Blood Pressure 143/79 H Pulse Oximetry 98 09/26/18 12:15 09/26/18 16:00 09/26/18 20:00 Temperature 99.0 F 98.4 F Pulse Rate 91 H 82 Respiratory Rate 18 20 Blood Pressure 163/86 H 175/89 H Pulse Oximetry 98 98 93 L 09/26/18 21:57 09/26/18 23:24 09/27/18 00:00 Temperature 99.7 F H Pulse Rate 77 76 86 Respiratory Rate 18 16 20 Blood Pressure 150/70 H Pulse Oximetry 96 94 L Intake & Output 09/26/18 09/26/18 09/27/18 06:59 18:59 06:59 Intake Total 600 / 600 960 / 960 240 / 240 Output Total 200 / 200 550 / 550 Balance 400 / 400 410 / 410 240 / 240 Weight 98.7 kg Intake: Oral 600 / 600 960 / 960 240 / 240 Output: Urine 200 / 200 550 / 550 Other: # Voids 1 Date of Last Bowel Movement 09/25/18 09/25/18 # Bowel Movements 1 Narrative: GEN: Well-nourished, not in distress. HEENT: NCAT, mucosa dry NECK: Trachea midline, no JVD CARDIO: Regular rate and rhythm, no murmurs PULM: Diminished breath sounds at bases with faint mid-field crackles bilaterally ABD/GI: Soft, non-distended, non-tender in all quadrants MSK: Trace peripheral edema SKIN: No rashes or lesions NEURO: Alert and oriented x 3, more alert. Not confused today. PSYCH: No agitation - Urinary Catheter Management Indwelling Urethral Catheter Cath placed during this visit: yes, but has since been removed by the nurse Reason for continuing: Other continuation reason Insertion date: 09/23/18 Insertion time: 17:25 Removal date: 09/25/18 Removal time: 11:30 Results 09/25/18 07:33 09/26/18 07:39 Cardiac Enzymes 09/25/18 09/25/18 09/26/18 Range/Units 07:33 08:21 07:39 AST 86 H 88 H 75 H (15-37) U/L CBC 09/25/18 Range/Units 07:33 WBC 8.0 (4.0-11.0) th/mm3 RBC 3.52 L (4.50-5.90) mil/mm3 Hgb 11.8 L (13.0-17.0) gm/dL Hct 34.6 L (39.0-51.0) % Plt Count 260 (150-450) th/mm3 Comprehensive Metabolic Panel 09/25/18 09/25/18 09/26/18 Range/Units 07:33 08:21 07:39 Sodium 138 138 136 (136-145) meq/L Potassium 3.5 3.4 L 4.0 (3.5-5.1) meq/L Chloride 100 99 97 L (98-107) meq/L Carbon Dioxide 32.7 H D 31.4 31.9 (21.0-32.0) meq/L BUN 52 H 52 H 25 H (7-18) mg/dL Creatinine 1.23 1.25 0.93 (0.60-1.30) mg/dL Calcium 8.7 9.2 8.7 (8.5-10.1) mg/dL AST 86 H 88 H 75 H (15-37) U/L ALT 62 67 67 (12-78) U/L Alkaline Phosphatase 60 58 56 (45-117) U/L Total Protein 7.4 7.7 7.1 D (6.4-8.2) g/dL Albumin 3.2 L 3.4 3.1 L (3.4-5.0) g/dL Intake and Output 09/26/18 09/26/18 09/27/18 14:59 22:59 06:59 Intake Total 1200 / 1200 Output Total 550 / 550 Balance 650 / 650 Intake: Oral 1200 / 1200 Output: Urine 550 / 550 Other: # Voids 1 Date of Last Bowel Movement 09/25/18 # Bowel Movements 1 Assessment and Plan - Assessment (1) Acute metabolic encephalopathy Code(s): G93.41 - Metabolic encephalopathy Status: Acute (2) Acute kidney injury Code(s): N17.9 - Acute kidney failure, unspecified Status: Acute (3) Pulmonary edema Code(s): J81.1 - Chronic pulmonary edema Status: Acute (4) Chronically on opiate therapy Code(s): 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 Elevated troponin. Most likely secondary to RENE and rhabdo No symptoms of ACS Pulmonary edema most likely secondary to RENE/CKD Plan for stress test tomorrow 2. Rhabdomyolysis. 3. Acute kidney injury. Creatinine better 4. Chronic back pain, currently on methadone. 5. Confusion with medications. 6. EF 60-65%
[2018-09-27] MEDS: Insulin NovoLIN Regular Correctional Sugar Inj SQ SCH ×4 (01:31→17:05)
[2018-09-27] MEDS: Heparin - SQ 10,000 UNITS/ML Vial SQ SCH ×2 (06:12→12:09)
[2018-09-27] MEDS: Chlorhexidine Gluconate 2% 1 Pack (2 Cloths) TOPICAL SCH (06:13)
[2018-09-27 08:31] LABS: Calcium 8.8 mg/dL (8.5-10.1); Carbon Dioxide 28.5 meq/L (21.0-32.0); Potassium 4.3 meq/L (3.5-5.1)
--- NOTE | 2018-09-27 08:57 | P.PNIM ---
Subjective Interval history: off the unit went for stress test- Physical Exam Vital signs: Vital Signs 09/26/18 10:03 09/26/18 12:00 09/26/18 12:14 Temperature 98.7 F Pulse Rate 100 H 94 H 80 Respiratory Rate 15 18 15 Blood Pressure 143/79 H Pulse Oximetry 98 09/26/18 12:15 09/26/18 16:00 09/26/18 20:00 Temperature 99.0 F 98.4 F Pulse Rate 91 H 82 Respiratory Rate 18 20 Blood Pressure 163/86 H 175/89 H Pulse Oximetry 98 98 98 09/26/18 21:57 09/26/18 23:24 09/27/18 00:00 Temperature 99.7 F H Pulse Rate 77 76 86 Respiratory Rate 18 16 20 Blood Pressure 150/70 H Pulse Oximetry 96 94 L 09/27/18 01:00 09/27/18 03:22 09/27/18 04:00 Temperature 98.4 F Pulse Rate 81 93 H Respiratory Rate 16 20 Blood Pressure 131/98 H Pulse Oximetry 98 92 L 09/27/18 05:00 09/27/18 08:34 09/27/18 08:35 Temperature Pulse Rate 85 Respiratory Rate 20 Blood Pressure Pulse Oximetry 98 95 Intake & Output 09/26/18 09/27/18 09/27/18 18:59 06:59 18:59 Intake Total 960 / 960 240 / 240 Output Total 550 / 550 Balance 410 / 410 240 / 240 Intake: Oral 960 / 960 240 / 240 Output: Urine 550 / 550 Other: # Voids 1 Date of Last Bowel Movement 09/25/18 09/26/18 # Bowel Movements 1 Narrative: awake and alert, no distress anciteric lungs- decrease breath sounds, no rales regular rhythm abdomen-soft nontendere xtremites no edema Urinary Catheter Management Indwelling Urethral Catheter: Cath placed during this visit: yes, but has since been removed by the nurse Reason for continuing: Other continuation reason Insertion date: 09/23/18 Insertion time: 17:25 Removal date: 09/25/18 Removal time: 11:30 Results Labs CBC & Chem 7: 09/25/18 07:33 09/27/18 06:40 Labs: Microbiology 09/23/18 17:17 Blood - Peripheral Aerobic Blood Culture - Preliminary No growth in 3 days 09/23/18 17:17 Blood - Peripheral Anaerobic Blood Culture - Preliminary No growth in 3 days 09/23/18 17:17 Blood - Peripheral Aerobic Blood Culture - Preliminary No growth in 3 days 09/23/18 17:17 Blood - Peripheral Anaerobic Blood Culture - Preliminary No growth in 3 days Assessment and Plan (1) Acute metabolic encephalopathy: Code(s): G93.41 - Metabolic encephalopathy Status: Acute (2) Acute kidney injury: Code(s): N17.9 - Acute kidney failure, unspecified Status: Acute (3) Pulmonary edema: Code(s): J81.1 - Chronic pulmonary edema Status: Acute (4) Chronically on opiate therapy: Code(s): Z79.891 - correction (current) use of opiate analgesic Status: Acute (5) Elevated troponin: Code(s): R74.8 - Abnormal levels of other serum enzymes Status: Acute (6) Essential (primary) hypertension: Code(s): I10 - Essential (primary) hypertension Status: Acute (7) Encephalopathy acute: Code(s): G93.40 - Encephalopathy, unspecified Status: Acute Plan 63yM presenting with acute metabolic encephalopathy, acute kidney injury, pulmonary edema, elevated troponin, and metabolic acidosis. Clinically improved with diuresis Acute metabolic encephalopathy, likely due to uremia vs medication effect- REsolved Chronic opiate dependence history of chronic pain- - he ff with Dr Chavez as OP - on methadone he's on at home- unsure of dose holding for now -CTH showed no acute pathology -No reported history of alcohol or illicit drug abuse/ dependence Elevated troponin, likely secondary to renal failure and rhabdo History of hypertension History of dyslipidemia -Cardiac monitoring -Trend trops. 2D echo- good EF- 60-65% -Patient reports no chest pain at present, EKG shows no concerning ST or T wave changes -Daily ASA -Continue subcu heparin no indication for systemic anticoagulation - 09/26 d/w Dr. Hutson- he will need a stress test prior to discharge - going for stress testing today Acute pulmonary edema- improved Possible aspiration pneumonitis MIld leukoctyosis- imrpoved Acute respiratory failure requiring non-invasive ventilation via BiPAP -Bipap as to aid with pulmonary edema. Currently on nasal cannula -Patient received a dose of ceftriaxone, metronidazole, and vancomycin in ED over concern for possible aspiration; will observe off antibiotics for now as patient is afebrile and has only mild leukocytosis Acute kidney injury- resolved-voiding Acute metabolic acidosis- resolved Acute rhabdomyolysis - creatinine improved - check CPK level - ff- in am - on further questionign was taken a lot of Ibuprofen- advised - continue gentrle hydration Questionable history of diabetes mellitus -Patient is unsure of whether he has been diagnosed with this in the past, does not currently take any medications for DM - good readings here -Sliding scale insulin as needed Up and ambualting Advise aptient to ff up with PCP- Dr. valle and Pain managmeent Dr Chavez Progress Note: Quality VTE Deep Vein Thrombosis/Pulmonary Embolism Present on Admission: No _ (1) Pulmonary edema Qualifiers: Chronicity:
[2018-09-27] MEDS: Senna/Docusate Sodium 8.6/50 MG Tablet PO SCH (09:40)
[2018-09-27] MEDS: Famotidine 20 MG Tablet PO SCH (09:40)
[2018-09-27 13:14] VITALS: RESP 18
--- NOTE | 2018-09-27 15:52 | NM ---
EXAM DATE: 09/27/2018 3:48 PM EST AGE/SEX: 63 years / Male INDICATIONS:Coronary artery disease. . Mid chest pain for one day. CLINICAL DATA: This is the patient's initial encounter. Patient reports that signs and symptoms have been present for 1 day and indicates a pain score of 1/10. MEDICAL/SURGICAL HISTORY: Hypertension. None. COMPARISON: No prior exams available for comparison. No external comparison. DOSE: 8.3 mCi Tc 99m Myoview at rest 26.6 mCi [id number] at stress 0.4 mg Lexiscan STRESS SYMPTOMS: None noted. EJECTION FRACTION: 58 % TECHNIQUE: The patient underwent pharmacologic stress with infusion of prescribed dose. Continuous ECG tracing was monitored during stress. Gated SPECT imaging was performed after stress and conventi onal SPECT imaging was performed at rest. The examination was performed on a SPECT/CT scanner, both attenuation and non-corrected datasets were reviewed. FINDINGS: Distribution: The maximum perfused segment at stress is in the lateral wall. Perfusion Study: No definite reversible perfusion defects are identified. Small fixed defect anteri or wall and apical regions. Gated Study: There are intact wall motion and wall thickening without hypokinetic or dyskinetic segm ents. The ejection fraction is calculated at 58%. RISK CATEGORY: Low (<1% Annual Mortality Rate) CONCLUSION: 1. No definite reversible perfusion defects are identified to suggest stress-induced myocardial isch emia. Electronically signed by: Santos Soria MD Board Certified Radiologist 09/27/2018 3:51 PM EST
--- NOTE | 2018-09-27 16:47 | P.DS ---
DS: Providers Date of admission: 09/23/18 18:38 Primary care physician: No Primary Care Physician Consults: 09/23/18 18:55 HUB Only Consult Order Routine Consulting Provider: Amie Holloway 09/24/18 10:49 Consult to Cardiology Routine Consulting Provider: Valdo Hutson Does the patient have a Director Of Patient Safety who follows them?: No Preferred Segmental Wall Installer:: Internal Audit Director Physician Reason for Consultation: Trop elevation Notified:: Office Spoke with:: Ladonna Date Notified:: 09/24/18 Time Notified:: 12:23 Ordering Provider: KAL 09/24/18 10:50 Consult to Nephrology Routine Consulting Provider: Nic Guardado Does the patient have a Cryptologic Supervisor who follows them?: No Preferred Nephrology Fourchette Sewer:: Internal Audit Director Physician Reason for Consultation: RENE Notified:: Service Spoke with:: Melissa Date Notified:: 09/24/18 Time Notified:: 12:17 Ordering Provider: KAL 09/25/18 07:52 Consult to Hospitalist Routine Consulting Provider: Ted Harvey Reason for Consultation: Assume care in am 09/26/18 Notified:: Service Spoke with:: gustavo Date Notified:: 09/25/18 Time Notified:: 08:01 Comments:: waiting promotion producer back Ordering Provider: KAL Brief History from admission: 63yM presenting with altered mental status. As per the patient's spouse, the patient has been switching from hydrocodone to methadone over the past several weeks; she says "they just keep going up on the dose every time he goes for an appointment" but is unsure of what dose the patient is currently taking. She says that he's been increasingly confused in the mornings after he takes his medications but typically becomes more alert in the afternoon. He's been taking ibuprofen "by the handful, like candy" for the past 1-2 weeks to help with his chronic back pain, and his spouse brought him to the ED today when she noticed that he was increasingly more confused than usual. The patient was seen in the ED and found to have acute kidney injury, pulmonary edema, and presumed uremic encephalopathy. The patient is a very poor historian and is unable to provide further details of HPI or ROS. He and his spouse do not know what home meds he is on or the doses. DS: Diagnosis Discharge Diagnosis (1) Acute metabolic encephalopathy: Status: Acute (2) Acute kidney injury: Status: Acute (3) Pulmonary edema: Status: Acute (4) Chronically on opiate therapy: Status: Acute (5) Elevated troponin: Status: Acute (6) Essential (primary) hypertension: Status: Acute (7) Encephalopathy acute: Status: Acute DS: Summary 63yM presenting with acute metabolic encephalopathy, acute kidney injury, pulmonary edema, elevated troponin, and metabolic acidosis. Clinically improved Acute metabolic encephalopathy, likely due to uremia vs medication effect- Resolved Chronic opiate dependence history of chronic pain- - he ff with Dr Chavez as OP. States his last hydrocodone was 4 weeks ago and methadone about 2 weeks ago -CTH showed no acute pathology -No reported history of alcohol or illicit drug abuse/ dependence Elevated troponin, likely secondary to renal failure and rhabdo History of hypertension History of dyslipidemia -Need home meds clarified. Pt unable to recall. Left message with GF. RN to obtain list prior to dc -Cardiac monitoring -Trend trops. 2D echo- good EF -Cardiology consult appreciated -Patient reports no chest pain at present, EKG shows no concerning ST or T wave changes -Daily ASA -Continue subcu heparin no indication for systemic anticoagulation d/w Dr. Hutson- he will need a stress test prior to discharge. Lexiscan negative for ischemia Acute pulmonary edema- improved Possible aspiration pneumonitis Mild leukocytosis- resolved Acute respiratory failure requiring non-invasive ventilation via BiPAP -Bipap as to aid with pulmonary edema. Currently on RA -Patient received a dose of ceftriaxone, metronidazole, and vancomycin in ED over concern for possible aspiration; will observe off antibiotics for now as patient is afebrile and has only mild leukocytosis Acute kidney injury- resolved-voiding Acute metabolic acidosis- resolved Acute rhabdomyolysis - creatinine improved - likely from NSAID use pt counselled to avoid Questionable history of diabetes mellitus -Patient is unsure of whether he has been diagnosed with this in the past, does not currently take any medications for DM - good readings here -Sliding scale insulin as needed HTN. Start Norvasc avoid [place] for now Up and ambulating Advise patient to ff up with PCP- Dr. Royce Roque for dc Time Spent with Patient Total time spent providing and/or coordinating discharge services: Greater than 30 minutes Quality: VTE Deep Vein Thrombosis/Pulmonary Embolism Present on Admission: No Exam Narrative Exam Narrative: GENERAL: This is a well-nourished, well-developed patient, in no apparent distress. CARDIOVASCULAR: Regular rate and rhythm without murmurs, gallops, or rubs. RESPIRATORY: Clear to auscultation. Breath sounds equal bilaterally. No wheezes , rales, or rhonchi. GASTROINTESTINAL: Abdomen soft, non-tender, nondistended. Normal active bowel sounds MUSCULOSKELETAL: Extremities without clubbing, cyanosis, or edema. NEURO: Alert & Oriented x4 to person, place, time, situation. Moves all ext x4 Results Labs on day of discharge: Labs from last 24 hours 09/27/18 09/27/18 09/27/18 12:05 06:40 06:17 Sodium 136 Potassium 4.3 Chloride 99 Carbon Dioxide 28.5 Anion Gap 9 BUN 19 H Creatinine 0.87 Estimated GFR 88 L POC Glucose 136 H 129 H Random Glucose 115 H Calcium 8.8 Total Creatine Kinase 270 09/26/18 09/26/18 09/26/18 23:33 21:40 17:39 Sodium Potassium Chloride Carbon Dioxide Anion Gap BUN Creatinine Estimated GFR POC Glucose 112 H 109 103 Random Glucose Calcium Total Creatine Kinase Preliminary micro results at discharge 09/23/18 17:17 Aerobic Blood Culture - Preliminary Blood - Peripheral No growth in 4 days Anaerobic Blood Culture - Preliminary No growth in 4 days 09/23/18 17:17 Aerobic Blood Culture - Preliminary Blood - Peripheral No growth in 4 days Anaerobic Blood Culture - Preliminary No growth in 4 days Impressions ITS Impressions Head CT 09/23/18 16:19 CONCLUSION: 1. No acute intracranial abnormality. . . Chest X-Ray 09/24/18 05:00 CONCLUSION: Cardiomegaly and bilateral patchy airspace disease Abdomen/Bladder Ultrasound 09/24/18 12:43 CONCLUSION: 1. Mildly increased renal echogenicity characteristic of medical renal disease. 2. 1 cm right renal cyst. No hydronephrosis. Myocardial Perfusion Scan Nuc Med 09/27/18 00:00 CONCLUSION: 1. No definite reversible perfusion defects are identified to suggest stress- induced myocardial ischemia. Discharge Plan Discharge Disposition Patient Disposition: 01 Discharge Home Discharge Condition Condition: Stable Discharge Order Discharge Orders: Discharge Order (Routine); Ordered 09/27/18 Ordered By: Ted Harvey Discharge Details Discharge Comment: obtain home meds Physicians Team Primary Care Provider: Primary Care Eb,Telma Attending Provider: Rodolfo Barnett Other Providers: Amie Holloway ; Valdo Hutson ; Nic Guardado Rxs /Orders / Referrals /Forms Prescriptions: New amlodipine [Norvasc] 5 mg Tablet 5 mg PO DAILY Qty: 30 RF: 0 aspirin 81 mg Tablet,Delayed Release (Dr/Ec) 81 mg PO DAILY Qty: 30 RF: 0 Continue ropinirole 0.5 mg Tablet 0.5 mg PO HS RF: 0 metoprolol tartrate 25 mg Tablet 25 mg PO BID RF: 0 Discontinued lisinopril RF: 0 lisinopril-hydrochlorothiazide 20-12.5 mg Tablet 1 tab PO DAILY RF: 0 Referrals: Primary Care Telma Parson [Primary Care Provider] - See Instructions (Follow up PCP Dr Crane in 3 days ) Discharge Instructions Additional Instructions: Your Health Problems: Goals to Promote Your Health: * To prevent worsening of your condition * To maintain your health at the optimal level Directions to Meet Your Goals: * Take your medications as prescribed * Follow your dietary instruction * Follow activity as directed * Keep your appointments as scheduled * Take your immunizations and boosters as scheduled * If your symptoms worsen call your PCP * If no PCP go to Urgent Care or Emergency Room Smoking is dangerous to your health. Avoid second hand smoke. You may reach the 24-hour crisis hotline for domestic abuse at . Post Discharge Care Plan Care Plan Goals: Your Health Problems: Goals to Promote Your Health: * To prevent worsening of your condition * To maintain your health at the optimal level Directions to Meet Your Goals: * Take your medications as prescribed * Follow your dietary instruction * Follow activity as directed * Keep your appointments as scheduled * Take your immunizations and boosters as scheduled * If your symptoms worsen call your PCP * If no PCP go to Urgent Care or Emergency Room Smoking is dangerous to your health. Avoid second hand smoke. You may reach the 24-hour crisis hotline for domestic abuse at . Status ED Status: Left Department Discharge Information Discharge Date/Time: 09/27/18 19:00
[2018-09-27] MEDS ORDERED: amLODIPine 5 MG Tablet PO SCH (17:00)
[2018-09-27 18:01] VITALS: BP 139/84; PULSE 86; TEMP 97.9; O2SAT 97
--- NOTE | 2018-09-27 19:10 | P.PNCA ---
Subjective Interval history: No events overnight Waiting for stress test Medications and Allergies Active Medications: Active Medications Acetaminophen (Tylenol) 650 mg PO Q6H PRN PRN Reason: PAIN 1-10 AND/OR FEVER >101F Al Hydroxide/Mg Hydroxide (Milk Of Magnchrist Liq) 30 ml PO Q12H PRN PRN Reason: Mild Constipation Last Admin: 09/26/18 16:15 Dose: 30 ml Albuterol (Duoneb Neb (Prn)) 1 ampul NEB Q2HR NEB PRN PRN Reason: WHEEZING Albuterol (Duoneb Neb (Harsh)) 1 ampul NEB Q4HR NEB [facility] Last Admin: 09/27/18 15:12 Dose: Not Given Albuterol (Albuterol Neb (Prn)) 2.5 mg NEB UNSCH PRN PRN Reason: SHORTNESS OF BREATH/WHEEZING Albuterol (Duoneb Neb (Prn)) 1 ampul NEB UNSCH PRN PRN Reason: SHORTNESS OF BREATH/WHEEZING Amlodipine Besylate (Norvasc) 5 mg PO DAILY [facility] Last Admin: 09/27/18 17:06 Dose: 5 mg Aspirin (Ecotrin) 81 mg PO DAILY [facility] Last Admin: 09/27/18 09:39 Dose: Not Given Bisacodyl (Dulcolax Supp) 10 mg RECTAL DAILY PRN PRN Reason: SEVERE CONSITIPATION Chlorhexidine Gluconate (Chlorhexidine 2% Cloth) 3 pack TOPICAL DAILY@0400 [facility] Stop: 09/29/18 03:59 Last Admin: 09/27/18 06:13 Dose: Not Given Chlorhexidine Gluconate (Chlorhexidine 2% Cloth) 3 pack TOPICAL DAILY@0400 PRN PRN Reason: Extra cloth needed Stop: 09/29/18 03:59 Dextrose (D50w Vial) 50 ml IV.PUSH UNSCH PRN PRN Reason: PER HYPOGLYCEMIA PROTOCOL Famotidine (Pepcid) 10 mg PO BID [facility] Last Admin: 09/27/18 09:40 Dose: Not Given Glucagon (Glucagon Inj) 1 mg OTHER PRN PRN PRN Reason: for Hypoglycemia Protocol Heparin Sodium (Porcine) (Heparin Inj) 5,000 units SQ Q8H [facility] Last Admin: 09/27/18 12:09 Dose: Not Given Sodium Chloride (Ns Inj) 1,000 mls @ 40 mls/hr IV.CONT .Q24H [facility] Last Admin: 09/26/18 21:44 Dose: 40 mls/hr Insulin Human Regular (Novolin R Correctional Sugar Inj) 0 units SQ Q6HR [facility]; Protocol Last Admin: 09/27/18 17:05 Dose: Not Given Lactulose (Lactulose Liq) 30 ml PO DAILY PRN PRN Reason: SEVERE CONSITIPATION Ondansetron HCl (Zofran Inj) 4 mg IV.PUSH Q6H PRN PRN Reason: NAUSEA OR VOMITING Senna/Docusate Sodium (Ofelia-Colace) 1 tab PO BID [facility] Last Admin: 09/27/18 09:40 Dose: Not Given Sennosides (Senokot) 17.2 mg PO Q12H PRN PRN Reason: Moderate Constipation Sodium Chloride (Ns Flush) 2 ml IV.FLUSH BID [facility] Last Admin: 09/27/18 09:40 Dose: Not Given Sodium Chloride (Ns Flush) 2 ml IV.FLUSH PRN PRN PRN Reason: FLUSH AFTER USING IV ACCESS Allergies Allergy/AdvReac Type Severity Reaction Status Date / Time penicillin G Allergy Mild UNKNOWN Verified 09/23/18 15:52 Home Medications Medication Instructions Recorded Confirmed Type metoprolol tartrate 25 mg PO BID 09/27/18 09/27/18 History ropinirole 0.5 mg PO HS 09/27/18 09/27/18 History Physical Exam Vital signs: Vital Signs 09/26/18 20:00 09/26/18 21:57 09/26/18 23:24 Temperature 98.4 F Pulse Rate 82 77 76 Respiratory Rate 20 18 16 Blood Pressure 175/89 H Pulse Oximetry 98 96 09/27/18 00:00 09/27/18 01:00 09/27/18 03:22 Temperature 99.7 F H Pulse Rate 86 81 Respiratory Rate 20 16 Blood Pressure 150/70 H Pulse Oximetry 94 L 98 09/27/18 04:00 09/27/18 05:00 09/27/18 08:00 Temperature 98.4 F 98.9 F Pulse Rate 93 H 87 Respiratory Rate 20 18 Blood Pressure 131/98 H 167/85 H Pulse Oximetry 92 L 98 95 09/27/18 08:34 09/27/18 08:35 09/27/18 11:59 Temperature Pulse Rate 85 80 Respiratory Rate 20 20 Blood Pressure Pulse Oximetry 95 09/27/18 12:00 09/27/18 16:00 Temperature 97.5 F L 97.9 F Pulse Rate 89 86 Respiratory Rate 18 18 Blood Pressure 174/89 H 139/84 Pulse Oximetry 94 L 97 Intake & Output 09/27/18 09/27/18 09/28/18 06:59 18:59 06:59 Intake Total 240 / 240 0 / 0 Output Total 1500 / 1500 Balance 240 / 240 -1500 / -1500 Intake: Oral 240 / 240 0 / 0 Output: Urine 1500 / 1500 Other: # Voids 1 Date of Last Bowel Movement 09/26/18 09/25/18 # Bowel Movements 1 Narrative: GEN: Well-nourished, not in distress. HEENT: NCAT, mucosa dry NECK: Trachea midline, no JVD CARDIO: Regular rate and rhythm, no murmurs PULM: Diminished breath sounds at bases with faint mid-field crackles bilaterally ABD/GI: Soft, non-distended, non-tender in all quadrants MSK: Trace peripheral edema SKIN: No rashes or lesions NEURO: Alert and oriented x 3, more alert. Not confused today. PSYCH: No agitation - Urinary Catheter Management Indwelling Urethral Catheter Cath placed during this visit: yes, but has since been removed by the nurse Reason for continuing: Other continuation reason Insertion date: 09/23/18 Insertion time: 17:25 Removal date: 09/25/18 Removal time: 11:30 Results 09/25/18 07:33 09/27/18 06:40 Cardiac Enzymes 09/26/18 Range/Units 07:39 AST 75 H (15-37) U/L Comprehensive Metabolic Panel 09/26/18 09/27/18 Range/Units 07:39 06:40 Sodium 136 136 (136-145) meq/L Potassium 4.0 4.3 (3.5-5.1) meq/L Chloride 97 L 99 (98-107) meq/L Carbon Dioxide 31.9 28.5 (21.0-32.0) meq/L BUN 25 H 19 H (7-18) mg/dL Creatinine 0.93 0.87 (0.60-1.30) mg/dL Calcium 8.7 8.8 (8.5-10.1) mg/dL AST 75 H (15-37) U/L ALT 67 (12-78) U/L Alkaline Phosphatase 56 (45-117) U/L Total Protein 7.1 D (6.4-8.2) g/dL Albumin 3.1 L (3.4-5.0) g/dL Intake and Output 09/27/18 09/27/18 09/27/18 06:59 14:59 22:59 Intake Total 0 / 0 Output Total 1500 / 1500 Balance -1500 / -1500 Intake: Oral 0 / 0 Output: Urine 1500 / 1500 Other: Date of Last Bowel Movement 09/25/18 # Bowel Movements 1 - Imaging and Cardiology Imaging: Impressions Myocardial Perfusion Scan Nuc Med 09/27/18 00:00 CONCLUSION: 1. No definite reversible perfusion defects are identified to suggest stress- induced myocardial ischemia. 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 Elevated troponin. Most likely secondary to RENE and rhabdo No symptoms of ACS Pulmonary edema most likely secondary to RENE/CKD Stress test today, if negative then cardiovascularly stable for discharge 2. Rhabdomyolysis. Resolved 3. Acute kidney injury. Creatinine better 4. Chronic back pain, currently on methadone. 5. Confusion with medications. 6. EF 60-65%
== END 2018-09-27 19:00 | disposition home or self-care (01) | DRG 70 ==
LOC: NEPD 15:42 → NEDA 18:38 → HIMC 20:49 → H7ONC 09-25 12:29
PROVIDERS: ADMIT Hospitalist; ATTEND Hospitalist
DX: M54.9 Dorsalgia, unspecified; I10 Essential (primary) hypertension; F11.20 Opioid dependence, uncomplicated; J69.0 Pneumonitis due to inhalation of food and vomit; E87.2 Acidosis; F05 Delirium due to known physiological condition; E78.5 Hyperlipidemia, unspecified; Z88.0 Allergy status to penicillin; R40.2412 Glasgow coma scale score 13-15, at arrival to emergency department; D72.829 Elevated white blood cell count, unspecified; J96.01 Acute respiratory failure with hypoxia; G89.29 Other chronic pain; N17.9 Acute kidney failure, unspecified; T39.395A Adverse effect of other nonsteroidal anti-inflammatory drugs [NSAID], initial encounter; M62.82 Rhabdomyolysis; F17.210 Nicotine dependence, cigarettes, uncomplicated; G93.41 Metabolic encephalopathy
CPT/HCPCS: 36600; 70450; 71010; 71045; 76775; 78452; 80048; 80053; 80307; 81001; 82140; 82550; 82552; 82803; 82805; 82948; 82962; 83520; 83605; 83735; 83880; 84100; 84443; 84484; 85025; 85027; 85610; 85730; 87040; 87205; 87641; 90765; 90768; 90775; 93005; 93017; 93306; 94002; 94003; 94640; 94656; 94657; 94664; 94665; 96365; 96368; 96375; 99291; A9502; J0696; J1644; J1940; J2785; J3370; J7030; J7050; J7070